=== PATIENT | female | born 1980 | race Caucasian/White ===

== ENCOUNTER 2020-04-04 13:41 | Inpatient (IN) | payer SELFPAY ==
[2020-04-04] VITALS (8 sets, daily range): BP systolic 93–173; BP diastolic 61–117; PULSE 71–96; RESP 16–27; TEMP 36.8–37.1; O2SAT 96–100; BMI 21.9
--- NOTE | 2020-04-04 13:57 | ED_ITS ---
HPI - Psych General: Chief Complaint: Psychiatric Symptoms Stated Complaint: mhe Time Seen by Provider: 04/04/20 13:55 History of Present Illness: HPI Narrative: 39-year-old female mother recently , she had not been managing well. she had been drinking heavily the last 2 wks -she states she has been drinking 4 or more beers per day along with 10 shots. She has not been drinking for the last 12 hr. today in the emergency room she is desponded over the loss of her mother. She is tearful she denies suicidal ideation or homicidal ideation, but she does admit to having previously been hospitalized for mental health issues going back to 2013. Prior to that when she was a 19-year-old she was hospitalized for suicidal attempt where she cut her wrist she still has the scars from this. She denies any other recent illness or problems. She denies any cough cold fever sweats chills shortness of breath abdominal pain UTI GI or symptoms. Review of Systems Const: Denies: fever(s), chills, body aches, change in appetite, fatigue or malaise ENMT: Denies: throat pain, ear or mastoid pain, nasal discharge or nasal congestion Card: Denies: chest pain, edema, dyspnea on exertion or orthopnea Resp: Denies: dyspnea, productive cough or non-productive cough GI: Denies: abdominal pain, nausea, vomiting, hematemesis, coffee ground emesis, diarrhea, constipation, bloating, hematochezia or melena : Denies: flank pain, difficulty voiding, dysuria, urinary frequency or urinary urgency Skin/Breast: Denies: rash or pruritus PFSH ED PFSH: Medical History History of hepatitis A Surgical History H/O section X2 Social History Smoking and tobacco status: current every day smoker Physical Exam Const: COMMON NORMALS: no acute distress GENERAL APPEARANCE: cooperative and comfortable ORIENTATION/CONSCIOUSNESS: Yes awake, Yes oriented to person, Yes oriented to place and Yes oriented to time HENMT: COMMON NORMALS: normocephalic, atraumatic, hearing grossly normal bilaterally, external ears normal, EAC's normal, TM's normal bilaterally, Normal nasal mucous membranes and turbinates present, moist oral mucous membranes and oropharynx normal HEAD & SCALP: normocephalic and atraumatic NOSE: Normal nasal mucous membranes and turbinates present EXTERNAL EAR: Yes external ears normal EXTERNAL AUDITORY CANAL: EAC's normal TYMPANIC MEMBRANE: TM's norm al bilaterally Eye: COMMON NORMALS: Equal, round and reactive pupils present, EOMs intact bilaterally, conjunctivae normal and no scleral icterus CONJUNCTIVA: Yes conjunctivae normal PUPIL: Yes Equal, round and reactive pupils present Neck/C-Spine: COMMON NORMALS: full ROM, no lymphadenopathy, supple and no JVD Lymph: LYMPHATIC: no lymphadenopathy noted and no lymphedema noted Resp: COMMON NORMALS: normal respiratory effort, No retractions, No use of accessory muscles and clear to auscultation bilaterally AUSCULTATION: clear to auscultation bilaterally Cardio: COMMON NORMALS: no JVD, regular rate, regular rhythm and No murmurs present (Cardio) RATE: regular rate RHYTHM: regular rhythm GI: COMMON NORMALS: Soft to palpation and No hepatosplenomegaly present AUSCULTATION: Yes normoactive bowel sounds PALPATION: Yes Soft to palpation, No Tenderness to palpation present (GI), No Guarding due to palpation present (GI) and Yes No hepatosplenomegaly present Extremity: COMMON NORMALS: normal to inspection, capillary refill normal, no clubbing, cyanosis or edema, no calf tenderness and no pedal edema Neuro: SENSORIUM/ORIENTATION: Yes oriented to person, Yes oriented to place and Yes oriented to time Skin: COMMON NORMALS: no rashes or lesions noted GENERAL SKIN EXAM: no rashes or lesions noted MDM - Psych MDM Narrative: Medical decision making narrative: Patient does not already express suicidal ideation but he does state she wishes she was no longer here. She wishes she could just fall asleep and not wake up she has previously att empted suicide and has scars on her left forearm from that attempt. She is extremely despondent I believe she is an imminent danger to herself given her level of despondency. She is already self-medicating with alcohol. In talking to her I do not think her coping mechanisms or judgment skills are adequate to prevent her from making a rash decision in harming herself discussed Dr. Durán and he agrees. He will admit to the psychiatric unit. Lab Data: Labs: Lab Results 04/04/20 04/04/20 04/04/20 Range/Units 14:20 14:20 14:30 WBC 12.6 H (4.0-10.0) 10^3/ uL RBC 5.14 (4.1-5.3) 10^6/u L Hgb 14.2 (11.5-15.3) g/dL Hct 44.5 (37.0-47.0) % MCV 86.6 (81-99) fL MCH 27.6 L (28.0-34.0) pg MCHC 31.9 (30.0-36.0) g/dL RDW 13.9 (12.1-15.1) % Plt Count 398 (130-400) 10^3/c mm MPV 9.5 (7.4-10.4) fL Neut % (Auto) 72.0 % Lymph % (Auto) 18.3 % Seward % (Auto) 7.8 % Eos % (Auto) 1.2 % Baso % (Auto) 0.5 % Neut # (Auto) 9.1 H (1.8-7.7) 10^3/u L Lymph # (Auto) 2.3 (0.8-4.8) 10^3/u L Seward # (Auto) 1.0 H (0.2-0.9) 10^3/u L Eos # (Auto) 0.2 (0.0-0.8) 10^3/u L Baso # (Auto) 0.1 (0.0-0.1) 10^3/u L Nucleated RBC % (a uto) 0 % Nucleated RBCs # 0.0 /100WBC Sodium 137 (136-145) mmol/L Potassium 4.5 (3.5-5.1) mmol/L Chloride 99 (98-107) mmol/L Carbon Dioxide 27 (22-29) mmol/L Anion Gap 15.5 (5-19) BUN 6 (6-20) mg/dL Creatinine 0.5 (0.5-0.9) mg/dL GFR Calculation 138.8 H (90-130) mL/min Glucose 98 (65-115) mg/dL Calculated Osmolal ity 280 L (285-295) mOsm/k g Calcium 9.5 (8.5-10.5) mg/dL Total Bilirubin 0.4 (0.15-1.2) mg/dL AST 20 (0-32) U/L ALT 11 (0-33) U/L Alkaline Phosphata se 80 (35-105) IU/L Total Protein 7.3 (6.6-8.7) g/dL Albumin 4.6 (3.5-5.2) g/dL Globulin 2.7 (1.3-4.6) g/dL TSH 0.31 (0.27-4.20) uIU/ mL HCG, Qual Negative (Negative) Urine Color (Yellow) Urine Appearance (CLEAR) Urine pH (5-7) Ur Specific Gravit y (1.005-1.030) Urine Protein (Negative) Urine Glucose (UA) (Normal) Urine Ketones (Negative) Urine Blood (Negative) Urine Nitrate (Negative) Urine Bilirubin (NEGATIVE) Urine Urobilinogen (Negative) mg/dL Ur Leukocyte Geni ase (Negative) Salicylates < 0.3 L (3-10) mg/dL Urine Opiates Scre en (Negative) ng/mL Acetaminophen < 5.0 L (10-30) ug/mL Ur Barbiturates Sc reen (Negative) ng/mL Ur Phencyclidine S crn (Negative) ng/mL Ur Amphetamines Sc reen (Negative) ng/mL U Benzodiazepines Scrn (Negative) ng/mL Urine Cocaine Scre en (Negative) ng/mL U Marijuana (THC) Screen (Negative) ng/mL Ethyl Alcohol < 10 (0-10) mg/dL 04/04/20 04/04/20 Range/Units 14:30 14:30 WBC (4.0-10.0) 10^3/ uL RBC (4.1-5.3) 10^6/u L Hgb (11.5-15.3) g/dL Hct (37.0-47.0) % MCV (81-99) fL MCH (28.0-34.0) pg MCHC (30.0-36.0) g/dL RDW (12.1-15.1) % Plt Count (130-400) 10^3/c mm MPV (7.4-10.4) fL Neut % (Auto) % Lymph % (Auto) % Seward % (Auto) % Eos % (Auto) % Baso % (Auto) % Neut # (Auto) (1.8-7.7) 10^3/u L Lymph # (Auto) (0.8-4.8) 10^3/u L Seward # (Auto) (0.2-0.9) 10^3/u L Eos # (Auto) (0.0-0.8) 10^3/u L Baso # (Auto) (0.0-0.1) 10^3/u L Nucleated RBC % (a uto) % Nucleated RBCs # /100WBC Sodium (136-145) mmol/L Potassium (3.5-5.1) mmol/L Chloride (98-107) mmol/L Carbon Dioxide (22-29) mmol/L Anion Gap (5-19) BUN (6-20) mg/dL Creatinine (0.5-0.9) mg/dL GFR Calculation (90-130) mL/min Glucose (65-115) mg/dL Calculated Osmolal ity (285-295) mOsm/k g Calcium (8.5-10.5) mg/dL Total Bilirubin (0.15-1.2) mg/dL AST (0-32) U/L ALT (0-33) U/L Alkaline Phosphata se (35-105) IU/L Total Protein (6.6-8.7) g/dL Albumin (3.5-5.2) g/dL Globulin (1.3-4.6) g/dL TSH (0.27-4.20) uIU/ mL HCG, Qual (Negative) Urine Color Yellow (Yellow) Urine Appearance Clear (CLEAR) Urine pH 8 H (5-7) Ur Specific Gravit y 1.010 (1.005-1.030) Urine Protein Neg (Negative) Urine Glucose (UA) Norm (Normal) Urine Ketones Negative (Negative) Urine Blood Neg (Negative) Urine Nitrate Negative (Negative) Urine Bilirubin Neg (NEGATIVE) Urine Urobilinogen Norm (Negative) mg/dL Ur Leukocyte Geni ase Negative (Negative) Salicylates (3-10) mg/dL Urine Opiates Scre en Positive H (Negative) ng/mL Acetaminophen (10-30) ug/mL Ur Barbiturates Sc reen Negative (Negative) ng/mL Ur Phencyclidine S crn Negative (Negative) ng/mL Ur Amphetamines Sc reen Negative (Negative) ng/mL U Benzodiazepines Scrn Positive H (Negative) ng/mL Urine Cocaine Scre en Negative (Negative) ng/mL U Marijuana (THC) Screen Negative (Negative) ng/mL Ethyl Alcohol (0-10) mg/dL Discharge Plan Discharge Patient Disposition: Admitted As Inpatient Admit Provider: Luis Armando Durán Clinical Impression: Suicidal ideation Condition: Stable Discharge Orders: Discharge Order (Routine); Ordered 04/05/20 Ordered By: Luis Armando Durán Referrals: [facility] [place] [facility] Behavioral Health Care [Outside] - 4-7 days (Your intake paperwork will be submitted prior to your hospital discharge. They will contact you by phone for your initial assessment.) [facility] [Outside] (Resource for substance and alcohol abuse. They offer both inpatient and outpatient classes and support.) Discharge Diet: Usual diet Discharge Activity: Resume usual activity Additional Instructions: Alcoholics Anonymous Meeting Schedule Saturday-6:[address] [address] [facility]11[facility] [address] [place] [address] Interventions: ED Discharge Assessment Last Done: 04/04/20 16:14 ED Charges Last Done: 04/04/20 16:14 Discharge Date/Time: 04/04/20 16:17 Coding Level of Care Code ED Full Charge Bookkeeper for Derick Fwd Exam Comprehensive
[2020-04-04 14:32] LABS: Basophils # 0.1 10^3/uL (0.0-0.1); Basophils % 0.5 %; Eosinophils # 0.2 10^3/uL (0.0-0.8); Eosinophils % 1.2 %; Hematocrit 44.5 % (37.0-47.0); Hemoglobin 14.2 g/dL (11.5-15.3); Lymphocytes # 2.3 10^3/uL (0.8-4.8); Lymphocytes % 18.3 %; Mean Corpuscular HGB Conc 31.9 g/dL (30.0-36.0); Mean Corpuscular Hemoglobin 27.6 pg (28.0-34.0); Mean Corpuscular Volume 86.6 fL (81-99); Mean Platelet Volume 9.5 fL (7.4-10.4); Monocytes % 7.8 %; Neutrophils # 9.1 10^3/uL (1.8-7.7); Nucleated Red Blood Cells % 0 %; Platelet Count 398 10^3/cmm (130-400); Red Blood Count 5.14 10^6/uL (4.1-5.3); Red Cell Distribution Width 13.9 % (12.1-15.1); White Blood Count 12.6 10^3/uL (4.0-10.0)
[2020-04-04 15:05] LABS: Add Urine Microscopic? NO
[2020-04-04 15:09] LABS: Alanine Aminotransferase 11 U/L (0-33); Albumin Level 4.6 g/dL (3.5-5.2); Alkaline Phosphatase 80 IU/L (35-105); Anion Gap 15.5 (5-19); Aspartate Amino Transferase 20 U/L (0-32); Blood Urea Nitrogen 6 mg/dL (6-20); Calcium 9.5 mg/dL (8.5-10.5); Carbon Dioxide 27 mmol/L (22-29); Chloride 99 mmol/L (98-107); Globulin 2.7 g/dL (1.3-4.6); Glomerular Filtration Rate 138.8 mL/min (90-130); Glucose 98 mg/dL (65-115); Osmolality Calculated 280 mOsm/kg (285-295); Potassium 4.5 mmol/L (3.5-5.1); Sodium 137 mmol/L (136-145); Thyroid Stimulating Hormone 0.31 uIU/mL (0.27-4.20); Total Bilirubin 0.4 mg/dL (0.15-1.2); Total Protein 7.3 g/dL (6.6-8.7)
[2020-04-04 15:11] LABS: HCG Qualitative Urine. Negative (Negative)
[2020-04-04 15:13] LABS: Bilirubin Urine Neg (NEGATIVE); Blood Urine Neg (Negative); Glucose Urine UA Norm (Normal); Ketones Urine Negative (Negative); Leukocyte Esterase Urine Negative (Negative); Nitrate Urine Negative (Negative); Protein Urine Neg (Negative); Urine Appearance Clear (CLEAR); Urine Color Yellow (Yellow); Urobilinogen Urine Norm (Negative); pH Urine 8 (5-7)
[2020-04-04 15:16] LABS: Acetaminophen < 5.0 ug/mL (10-30); Alcohol Level < 10 mg/dL (0-10); Salicylate < 0.3 mg/dL (3-10)
[2020-04-04 15:18] LABS: Amphetamines Screen Urine Negative (Negative); Barbiturates Screen Urine Negative (Negative); Benzodiazepines Screen Urine Positive (Negative); Cocaine Screen Urine Negative (Negative); Opiate Screen Urine Positive (Negative); PCP Screen Urine Negative (Negative); THC Screen Urine Negative (Negative)
[2020-04-04] MEDS: nicotine 21 mg Patch 1 PATCH TRANSDERMA (17:13)
[2020-04-04] MEDS: trazodone 50 mg Tablet PO (20:34)
[2020-04-04] MEDS: acetaminophen 325 mg Tablet 650 MG PO (23:06)
--- NOTE | 2020-04-04 23:23 | PC.NURSE ---
Pt given Tylenol for body aches and Trazodone for sleep per request.
[2020-04-05 06:00] VITALS: BP 127/66; PULSE 81; RESP 17; TEMP 36.7; O2SAT 99
[2020-04-05 12:32] VITALS: BP 112/66; PULSE 91; RESP 18; TEMP 37.1; O2SAT 99
--- NOTE | 2020-04-05 13:51 | PM.NHP ---
Providers/Chief Complaint Admitting Physician: Luis Armando Durán [place] Source[place] [facility] Chief Complaint: mhe HPI NPU History of Present Illness Patricia Londono is a 39 year old female mixed ethnicity female whose mother recently and she is grief-stricken. She had been treated here for depression some 10 years ago and has been fairly stable since then until her mom . She has recently been so sad she can hardly function. She had not been managing well, drinking heavily the last 2 wks . . . 4 or more beers per day along with 10 shots. She has not been drinking for the last 12 hr. Today in the emergency room she is despondent over the loss of her mother. She is tearful she denies suicidal ideation or homicidal ideation, but she does admit to having previously been hospitalized for mental health issues going back to 2012. Prior to that when she was a 19-year-old she was hospitalized for suicidal attempt where she cut her wrist she still has the scars from this. She denies any other recent illness or problems. She denies any cough cold fever sweats chills shortness of breath abdominal pain UTI GI or symptoms. Review of Systems Narrative: No positive in any system. Patient is grieving. Meds NPU Home Medications Medication Instructions Recorded Confirmed Last Taken Type No Known Home Medications 04/04/20 04/04/20 Unknown History Allergies Allergy/AdvReac Type Severity Reaction Status Date / Time bupropion [From Wellbutrin] Allergy ALGY-Hives Verified 04/04/20 13:53 PFSH NPU PFSH: Medical History (Updated 04/05/20 @ 14:21 by Luis Armando Durán) History of hepatitis A Surgical History (Updated 04/04/20 @ 16:10 by Casey Maddox DO) H/O section X2 Social History Smoking and tobacco status: current every day smoker Mental Status Exam MSE Comments: This is a 39-year-old female who appears her stated age. She is clean and neat and good body habitus. Mood is sad and affect is flat. Thought processes are integrated and free of any racing, blocking or looseness of association. Speech is of normal rate and volume, without dysarthria, aprosody or pressure. The patient is conduct is appropriate and there is no evidence of psychosis, such as but not limited to hallucinations, delusions, ideas of reference, etc. cognitive functions are adequate. The patient is oriented to time, place and person. Insight and judgment are intact. She denies suicidal or homicidal ideation, plan or intent. Vitals/I&O/Wt Last Vital Signs Temp 98.7 F 04/05/20 12:32 Pulse 91 04/05/20 12:32 Resp 18 04/05/20 12:32 BP 112/66 04/05/20 12:32 Pulse Ox 99 04/05/20 12:32 Weight last 48 hrs Weight 120 lb Data NPU : 04/04/20 14:20 04/04/20 14:20 A&P Assessment and plan (1) Complicated grief: Refer patient to outpatient therapy. Initiate S-Citalopram to assist with depression. Status: Acute (2) Alcohol abuse: Refer patient for outpatient rehab. Status: Acute Involuntary Hold Information 96 Hour Hold: 96 Hour Involuntary Admission: No Attestations NPU Medical Necessity Statement*: I think we can get this patient stabilized relatively soon and continue her care on an outpatient basis. I anticipate 2 to 3 days additional stay is indicated. Time Spent in Patient Care: Greater than 35 minutes (>than 50% of time spent in counselling and/or direct pt care on unit). Coding Level of Care Code Acute Securities Consultant for Derick Cortez Diagnoses Complicated grief F43.29 Alcohol abuse F10.10
[2020-04-05] MEDS: citalopram 20 mg Tablet 10 MG PO (14:43)
[2020-04-05 19:52] VITALS: BP 126/76; PULSE 82; RESP 17; TEMP 36.9; O2SAT 99
--- NOTE | 2020-04-05 19:54 | P.DS_ITS ---
Diagnoses at Discharge Discharge Diagnosis (1) Complicated grief: Status: Acute Problem details: Patient will follow-up at behavioral health care. (2) Alcohol abuse: Status: Acute Problem details: The patient has been given referral to AA meeting schedule and to [facility] inpatient [facility] outpatient recovery program Reason for Visit Reason for Visit: Reason For Visit: mhe Brief History: The patient's mother recently and she is grief-stricken. She had been treated here for depression some 10 years ago and has been fairly stable since then until her mom . She has recently been so sad she can hardly function. She had not been managing well, drinking heavily the last 2 wks . . . 4 or more beers per day, along with 10 shots. Hospital Course Hospital Course The patient quickly noticed that her friends, when she was talking to them on the phone, kept remarking that she sounded better. She soon concluded that it was the absence of alcohol in her neurologic system that improved her speech and she determined that she needed to sober up. Discharge Summary Without alcohol she began to recover from the shock, but not from the sorrow, of her mother's loss. That will take some time and we have made referral for that as well as for alcohol recovery. A discharge packet has been provided to her with information on behavioral health care and [facility] and for follow-up on her respective issues. We also sent a prescription over to [facility] pharmacy at [facility] for citalopram 20 mg p.o. daily, #30, 2 refills. Her will pick her up tonight. Extensive counseling on education relating to cigarette smoking and alcohol was undertaken. Involuntary Hold Information 96 Hour Hold: 96 Hour Involuntary Admission: No Mental Status Exam MSE Comments: This is a 39-year-old female who appears her stated age. She is clean and neat and good body habitus. Mood is less sad sad and affect is more variegated. Thought processes remain integrated and free of any racing, blocking or looseness of association. Speech is of normal rate and volume, without dysarthria, aprosody or pressure. The patient is conduct is appropriate and there is no evidence of psychosis, such as but not limited to hallucinations, delusions, ideas of reference, etc. Cognitive functions are adequate. The patient is oriented to time, place and person. Insight and judgment are intact. She denies suicidal or homicidal ideation, plan or intent. Discharge Data Vitals: Last Vital Signs Temp 98.4 F 04/05/20 19:52 Pulse 82 04/05/20 19:52 Resp 17 04/05/20 19:52 BP 126/76 04/05/20 19:52 Pulse Ox 99 04/05/20 19:52 Discharge Plan Discharge Patient Disposition: Home, Self-Care Condition: Stable Prescriptions: New citalopram 20 mg Tablet 20 mg PO DAILY Qty: 0 RF: 0 No Action No Known Home Medications RF: 0 Discharge Orders: Discharge Order (Routine); Ordered 04/05/20 Ordered By: Luis Armando Durán Referrals: [facility] [place] Behavioral Health Care [Outside] - 4-7 days (Your intake paperwork will be submitted prior to your hospital discharge. They will contact you by phone for your initial assessment.) [facility] [Outside] (Resource for substance and alcohol abuse. They offer both inpatient and outpatient classes and support.) Discharge Diet: Usual diet Discharge Activity: Resume usual activity Activity Restrictions/Additional Instructions: Alcoholics Anonymous Meeting Schedule Saturday-6:00 p.m. [facility] [address] [place] [address] [facility]11[facility] [address] [place] [address] Discharge Attestations NPU Time Spent in Discharge Care*: critical care time (min): 20 Specific Discharge Activities: Specific discharge activities: educating patient, discussing with case monitor/social workers/dc planners, documenting/other paperwork and evaluating patient/reviewing data Other discharge activites (optional): Getting prescription information over to [facility]. Time Spent in Smoking Cessation: Time spent discussing smoking cessation with patient: 3 to 10 minutes Status at Discharge: Cognitive status at discharge: cognitively intact , Behavioral status at discharge: cooperative , Functional status at discharge: independent ambulation Overall status at discharge: other (The patient is grieving on this will take a while.) Coding Level of Care Code Acute Line Out Man for Shoaibg Fwd Diagnoses Complicated grief F43.29 Alcohol abuse F10.10
[2020-04-05 20:14] VITALS: BP 126/76; PULSE 82; RESP 17; TEMP 36.9; O2SAT 99
--- NOTE | 2020-04-05 20:27 | PC.NURSE ---
pt given discharge information packet, escorted to waiting private vehicle.
== END 2020-04-05 20:31 | disposition home or self-care (01) | DRG 882 ==
LOC: ER 14:27 → NP 15:58
PROVIDERS: Family Medicine
DX: F43.29 Adjustment disorder with other symptoms (principal); F17.210 Nicotine dependence, cigarettes, uncomplicated; F10.10 Alcohol abuse, uncomplicated; F32.9 Major depressive disorder, single episode, unspecified
CPT/HCPCS: 12345; 36415; 80053; 80306; 80307; 81003; 81025; 84443; 85025; 99284

== ENCOUNTER 2020-08-29 13:00 | Emergency (ER) | payer SELFPAY ==
[2020-08-29 13:45] VITALS: BP 122/78; PULSE 63; RESP 16; TEMP 37.1; O2SAT 98; BMI 25.0
[2020-08-29 13:49] VITALS: BP 122/78; O2SAT 99
[2020-08-29 13:50] VITALS: BP 122/78; O2SAT 99
[2020-08-29 14:00] VITALS: BP 111/77; O2SAT 99
--- NOTE | 2020-08-29 14:06 | W.ED.ABDPA2 ---
HPI - Abdominal Pain General: Chief Complaint: Abdominal Pain Stated Complaint: ct scan, walk in clinic told her to come here Time Seen by Provider: 08/29/20 13:25 History of Present Illness: HPI narrative: 40-year-old female patient presents to the emergency department with 8-day onset of right lower quadrant pain. She reports past 24 hours, experienced diarrhea, worsening right lower quadrant pain, nausea vomiting. She last ate yesterday, pizza, states did not get sick; this morning, drink coffee with nausea vomiting. She went to urgent care, was told to come to the ER for further evaluation of right lower quadrant pain. Denies hematochezia, hematemesis MD elicited complaint: abdominal pain Onset (ago): day(s) (8) Pain Consistency: intermittent and other (worsening) Location: RLQ and Suprapubic Severity: moderate Quality: aching and dull Migration to: no migration Exacerbating factors: movement Relieving factors: rest Associated Symptoms: Reports change in stool character, GI cramping, diarrhea, loose stools, nausea and vomiting; Denies chills, dysuria, fever(s) and hematemesis Related Data: Date of Last Menstrual Period: 08/08/20 Review of Systems General: Reports: 10 or more systems reviewed and unremarkable except in HPI and below Const: Denies: fever(s), chills or diaphoresis Eyes: Denies: blurry vision or eye redness ENMT: Denies: throat pain, dental pain or disequilibrium Card: Denies: chest pain, palpitations or irregular heart rhythm Resp: Denies: dyspnea, productive cough, non-productive cough or wheezing GI: Reports: abdominal pain, nausea, vomiting, early satiety, diarrhea, GI cramping and change in stool character; Denies: hematemesis or mucus in stool : Denies: difficulty voiding or dysuria Musc: Denies: back pain Skin/Breast: Denies: rash or pruritus Neuro: Denies: headache(s), weakness in extremities or behavioral changes Matthew/Lymph: Denies: easy bruising PFSH ED PFSH: Medical History (Updated 08/29/20 @ 16:58 by GENIE White) History of hepatitis A Surgical History H/O section X2 Social History Smoking and tobacco status: current every day smoker cigarettes Packs smoked per day: 1.5 Years cigarettes smoked: 25 Quit status (tobacco): considering quitting Second hand smoke exposure: Yes Current gender identity: Female Female Reproductive History: Date of last menstrual period: 08/08/20 Physical Exam Const: COMMON NORMALS: no acute distress, patient oriented x3, healthy appearing and alert GENERAL APPEARANCE: cooperative, comfortable and well hydrated HENMT: COMMON NORMALS: normocephalic, Normal external nose present and moist oral mucous membranes HEAD & SCALP: normocephalic NOSE: Normal external nose present Eye: COMMON NORMALS: Equal, round and reactive pupils present and EOMs intact bilaterally GENERAL EYE: appearance normal, both eyes and all related structures PUPIL: Yes Equal, round and reactive pupils present Neck/C-Spine: COMMON NORMALS: full ROM and no lymphadenopathy GENERAL: Yes normal visual inspection and Yes trachea midline CERVICAL SPINE: Yes cervical ROM normal Lymph: LYMPHATIC: no lymphadenopathy noted Chest: COMMONS NORMALS: normal inspection of the chest Resp: COMMON NORMALS: normal respiratory effort and clear to auscultation bilaterally AUSCULTATION: clear to auscultation bilaterally Cardio: COMMON NORMALS: regular rhythm, S1 normal heart sound present and S2 normal heart sound present RHYTHM: regular rhythm HEART SOUNDS: S1 normal heart sound present and S2 normal heart sound present GI: COMMON NORMALS: Normal to inspection, nondistended, normoactive bowel sounds present and Soft to palpation INSPECTION: Yes normal to inspection, No abdominal wall ecchymosis, No abdominal distension, No incision, Yes scar (RLQ - w/o erythema), No visible pulsation, No Localized GI swelling present and No GI erythema present AUSCULTATION: Yes normoactive bowel sounds PALPATION: Yes Soft to palpation, Yes Tenderness to palpation present (GI) Details: RLQ and other (suprapubic) and Yes Other GI palpation findings present (distention noted) : COMMON NORMALS: Yes no CVA tenderness BLADDER/KIDNEY EXAM: Yes no CVA tenderness Back/Pelvis: COMMON NORMALS: no CVA tenderness and thoracic and lumbar spine normal to inspection Extremity: COMMON NORMALS: normal to inspection and capillary refill normal Neuro: COMMON NORMALS: patient oriented x3 and no focal motor deficits SENSORIUM/ORIENTATION: Yes alert Psych: COMMON NORMALS: mental status grossly normal, Normal thought process present and cooperative ACTIVITY/MOTOR BEHAVIOR: Yes appropriate eye contact THOUGHT PROCESS: Normal thought process present Skin: COMMON NORMALS: no rashes or lesions noted and turgor normal GENERAL SKIN EXAM: no rashes or lesions noted and turgor normal Course ED course: 40-year-old female patient presents to the emergency department with complaints of abdominal pain, right lower quadrant, 8-day onset of diarrhea with worsening symptoms of nausea vomiting yesterday and today. CT scan of the abdomen pelvis with IV contrast revealed pancolitis. She is requesting to go home. She does not wish to stay in the hospital. She agrees that follow-up with a primary care provider will be needed and she agrees with follow-up. She will be discharged on antibiotics and antinausea medication. She agrees to follow-up with her primary care provider in 2 to 3 days, social service referral placed for assistance with referral. She was able to tolerate p.o. fluids here in the ED, she reports was hungry. Discussed with patient need for clear liquid diet and can advance as tolerated. Agrees to return to the emergency department if she develops worsening abdominal pain, hematochezia, hematemesis, she is willing to provide stool sample for stool studies have been ordered as an outpatient. Reevaluation of her belly was soft, not able to reproduce tenderness. Vital Signs: Vital signs: Vital Signs Temperature 98.8 F 08/29/20 13:45 Pulse Rate 63 08/29/20 13:45 Respiratory Rate 16 08/29/20 13:45 Blood Pressure 111/77 08/29/20 14:30 Pulse Oximetry 99 08/29/20 14:00 MDM - Abdominal Pain Lab Data: Labs: Lab Results 08/29/20 08/29/20 08/29/20 Range/Units 14:30 14:50 14:50 WBC 12.4 H (4.0-10.0) 10^3/ uL RBC 5.35 H (4.1-5.3) 10^6/u L Hgb 14.5 (11.5-15.3) g/dL Hct 46.5 (37.0-47.0) % MCV 86.9 (81-99) fL MCH 27.1 L (28.0-34.0) pg MCHC 31.2 (30.0-36.0) g/dL RDW 13.7 (12.1-15.1) % Plt Count 463 H (130-400) 10^3/c mm MPV 9.5 (7.4-10.4) fL Neut % (Auto) 65.4 % Lymph % (Auto) 22.9 % Bartholomew % (Auto) 8.1 % Eos % (Auto) 2.8 % Baso % (Auto) 0.6 % Neut # (Auto) 8.13 H (1.8-7.7) 10^3/u L Lymph # (Auto) 2.8 (0.8-4.8) 10^3/u L Bartholomew # (Auto) 1.0 H (0.2-0.9) 10^3/u L Eos # (Auto) 0.4 (0.0-0.8) 10^3/u L Baso # (Auto) 0.1 (0.0-0.1) 10^3/u L Nucleated RBC % (a uto) 0 % Nucleated RBCs # 0.0 /100WBC Sodium 138 (136-145) mmol/L Potassium 3.6 (3.5-5.1) mmol/L Chloride 100 (98-107) mmol/L Carbon Dioxide 27 (22-29) mmol/L Anion Gap 14.6 (5-19) BUN 5 L (6-20) mg/dL Creatinine 0.6 (0.5-0.9) mg/dL GFR Calculation 111.9 (90-130) mL/min Glucose 94 (65-115) mg/dL Calculated Osmolal ity 283 L (285-295) mOsm/k g Calcium 9.8 (8.5-10.5) mg/dL Total Bilirubin 0.4 (0.15-1.2) mg/dL AST 22 (0-32) U/L ALT 19 (0-33) U/L Alkaline Phosphata se 87 (35-105) IU/L Total Protein 7.7 (6.6-8.7) g/dL Albumin 4.6 (3.5-5.2) g/dL Globulin 3.1 (1.3-4.6) g/dL Lipase 32 (13-60) U/L HCG, Qual (Negative) Urine Color Yellow (Yellow) Urine Appearance Clear (CLEAR) Urine pH 6 (5-7) Ur Specific Gravit y 1.005 (1.005-1.030) Urine Protein Neg (Negative) Urine Glucose (UA) Norm (Normal) Urine Ketones Negative (Negative) Urine Blood Neg (Negative) Urine Nitrate Negative (Negative) Urine Bilirubin Neg (Negative) Urine Urobilinogen Norm (Negative) mg/dL Ur Leukocyte Geni ase Negative (Negative) 08/29/20 Range/Units 14:50 WBC (4.0-10.0) 10^3/ uL RBC (4.1-5.3) 10^6/u L Hgb (11.5-15.3) g/dL Hct (37.0-47.0) % MCV (81-99) fL MCH (28.0-34.0) pg MCHC (30.0-36.0) g/dL RDW (12.1-15.1) % Plt Count (130-400) 10^3/c mm MPV (7.4-10.4) fL Neut % (Auto) % Lymph % (Auto) % Bartholomew % (Auto) % Eos % (Auto) % Baso % (Auto) % Neut # (Auto) (1.8-7.7) 10^3/u L Lymph # (Auto) (0.8-4.8) 10^3/u L Bartholomew # (Auto) (0.2-0.9) 10^3/u L Eos # (Auto) (0.0-0.8) 10^3/u L Baso # (Auto) (0.0-0.1) 10^3/u L Nucleated RBC % (a uto) % Nucleated RBCs # /100WBC Sodium (136-145) mmol/L Potassium (3.5-5.1) mmol/L Chloride (98-107) mmol/L Carbon Dioxide (22-29) mmol/L Anion Gap (5-19) BUN (6-20) mg/dL Creatinine (0.5-0.9) mg/dL GFR Calculation (90-130) mL/min Glucose (65-115) mg/dL Calculated Osmolal ity (285-295) mOsm/k g Calcium (8.5-10.5) mg/dL Total Bilirubin (0.15-1.2) mg/dL AST (0-32) U/L ALT (0-33) U/L Alkaline Phosphata se (35-105) IU/L Total Protein (6.6-8.7) g/dL Albumin (3.5-5.2) g/dL Globulin (1.3-4.6) g/dL Lipase (13-60) U/L HCG, Qual Negative (Negative) Urine Color (Yellow) Urine Appearance (CLEAR) Urine pH (5-7) Ur Specific Gravit y (1.005-1.030) Urine Protein (Negative) Urine Glucose (UA) (Normal) Urine Ketones (Negative) Urine Blood (Negative) Urine Nitrate (Negative) Urine Bilirubin (Negative) Urine Urobilinogen (Negative) mg/dL Ur Leukocyte Geni ase (Negative) Imaging Data ^: CT Abd/Pel: Radiologist's impression: [place] [address] CT Scan Report Signed Patient: Patricia Londono #: [id number] : 1980Acct#:[id number] Age/Sex: 40 / FADM Date: 08/29/20 Loc: ERRoom/Bed: Attending Dr: Ordering Provider/Ordering MD: Yu Carr Date of Service: 08/29/20 Procedure(s): CT abdomen pelvis w con* [id number] Accession Number(s): [id number] Report Number: [id number] WS: [id number] CT ABDOMEN AND PELVIS WITH CONTRAST HISTORY: RLQ abd pain with n/v/d TECHNIQUE: Imaging performed of the abdomen and pelvis with IV contrast. Single phase imaging of the abdomen. Coronal and sagittal reformats are submitted. All CT scans at [facility] use at least one of these dose optimization techniques: automated exposure control; mA and/or kV adjustment per patient size (includes targeted exams where dose is matched to clinical indication); or iterative reconstruction. IV CONTRAST: Omnipaque 300; 95 mL IV. Oral contrast: No DLP: 374.86 mGy.cm COMPARISON: None available. Lower thorax: Lung bases are clear. Heart is normal size. No hiatal hernia. Liver/biliary system: Normal size with no intrahepatic dilatation. Gallbladder: Normal. No gallstones or wall thickening. No pericholecystic fluid. Pancreas: Normal. Spleen: Normal. Adrenal glands: Normal. Right kidney: Normal. Left kidney: Normal. Aorta: Mild atherosclerosis with no aneurysm. Lymphadenopathy: None. Free fluid: A moderate free fluid in the cul-de-sac. GI tract: Diffusely abnormal colon. There is also edema and thickening and pericolonic stranding. There is additional cyst mild stranding and haziness within the mesentery. The appendix is normal. There is no GI tract obstruction no free air is identified. Abdominal wall: Fat-containing umbilical hernia. Pelvis: Small amount of free fluid in the pelvis. Uterus is normal size and midline. Both ovaries are normal size and contains some all follicles. Bones: Unremarkable. CT/CT abdomen pelvis w con* [id number] IMPRESSION: 1. Diffuse moderate pancolitis. 2. Small amount of free fluid. 3. Normal appendix. Dictated By:Genny Schulte DO Signed By:Genny Schulte DOSigned Date/Time:08/29/201615 DD/ 10 Discharge Plan Discharge Patient Disposition: Home Clinical Impression: Pancolitis Abdominal pain Qualifiers: Abdominal location: right lower quadrant Qualified Code(s): R10.31 - Right lower quadrant pain Nausea & vomiting Qualifiers: Vomiting type: unspecified Vomiting Intractability: non-intractable Qualified Code(s): R11.2 - Nausea with vomiting, unspecified Condition: Stable Prescriptions: New Zofran 4 mg tablet 4 mg PO TID PRN (Reason: nausea and vomiting) 5 Days Qty: 10 RF: 0 Cipro 500 mg tablet 500 mg PO BID Qty: 14 RF: 0 Flagyl 500 mg tablet 500 mg PO TID Qty: 21 RF: 0 No Action multivitamin Tablet 1 tab PO DAILY RF: 0 citalopram 40 mg tablet 40 mg PO DAILY RF: 0 trazodone 50 mg tablet 50 mg PO BEDTIME PRN (Reason: insomnia) RF: 0 Discharge Orders: Discharge Order (Routine); Ordered 08/29/20 Ordered By: Yu Carr Discharge Diet: Advance as tolerated and Clear Liquid Discharge Activity: Limit activity as instructed Patient Instructions: Clear Liquid Diet (ED), Acute Nausea and Vomiting (ED), Abdominal Pain (ED), Infectious Colitis (ED) Activity Restrictions/Additional Instructions: Follow-up with your primary care provider in 2 to 3 days, follow-up without fail, Outpatient order for stool studies have been provided, collect and bring back to the hospital environmental services associate will be contacting you with follow-up time and date with a primary care provider, please ensure that your follow-up is completed as it may be a possibility you may need further referrals if not better Clear liquid diet, advance as tolerated Use Zofran as needed for nausea vomiting Return to the emergency department if you develop nausea vomiting that is resistant to the use of Zofran, worsening abdominal pain, fever chills or vomiting blood or blood in stool. Take it easy over the next couple of days, no work today or tomorrow, follow-up with your primary care provider accordingly. Coding Level of Care Code ED Retail Warehouse Supervisor for Chg Fwd Exam Comprehensive
[2020-08-29 14:30] VITALS: BP 111/77
[2020-08-29] MEDS: ondansetron 2 mg/ML SDV 2 mL 4 MG IVP (14:37)
[2020-08-29] MEDS: sodium chloride 0.9% 500 ML 999 ML IV (14:37)
[2020-08-29 15:07] LABS: Basophils # 0.1 10^3/uL (0.0-0.1); Basophils % 0.6 %; Eosinophils # 0.4 10^3/uL (0.0-0.8); Eosinophils % 2.8 %; Hematocrit 46.5 % (37.0-47.0); Hemoglobin 14.5 g/dL (11.5-15.3); Lymphocytes # 2.8 10^3/uL (0.8-4.8); Lymphocytes % 22.9 %; Mean Corpuscular HGB Conc 31.2 g/dL (30.0-36.0); Mean Corpuscular Hemoglobin 27.1 pg (28.0-34.0); Mean Corpuscular Volume 86.9 fL (81-99); Mean Platelet Volume 9.5 fL (7.4-10.4); Monocytes % 8.1 %; Neutrophils # 8.13 10^3/uL (1.8-7.7); Neutrophils % 65.4 %; Nucleated Red Blood Cells % 0 %; Platelet Count 463 10^3/cmm (130-400); Red Blood Count 5.35 10^6/uL (4.1-5.3); Red Cell Distribution Width 13.7 % (12.1-15.1); White Blood Count 12.4 10^3/uL (4.0-10.0)
[2020-08-29 15:27] LABS: Add Urine Microscopic? NO
[2020-08-29 15:39] LABS: HCG, Serum Qual Negative (Negative)
[2020-08-29 15:40] LABS: Blood Urine Neg (Negative); Glucose Urine UA Norm (Normal); Ketones Urine Negative (Negative); Nitrate Urine Negative (Negative); Protein Urine Neg (Negative); Specific Gravity, Urine 1.005 (1.005-1.030); Urine Appearance Clear (CLEAR); Urine Color Yellow (Yellow); pH Urine 6 (5-7)
[2020-08-29 15:41] LABS: Bilirubin Urine Neg (Negative); Leukocyte Esterase Urine Negative (Negative); Urobilinogen Urine Norm (Negative)
[2020-08-29 15:45] LABS: Alanine Aminotransferase 19 U/L (0-33); Albumin Level 4.6 g/dL (3.5-5.2); Alkaline Phosphatase 87 IU/L (35-105); Anion Gap 14.6 (5-19); Aspartate Amino Transferase 22 U/L (0-32); Blood Urea Nitrogen 5 mg/dL (6-20); Calcium 9.8 mg/dL (8.5-10.5); Carbon Dioxide 27 mmol/L (22-29); Chloride 100 mmol/L (98-107); Globulin 3.1 g/dL (1.3-4.6); Glomerular Filtration Rate 111.9 mL/min (90-130); Glucose 94 mg/dL (65-115); Lipase 32 U/L (13-60); Osmolality Calculated 283 mOsm/kg (285-295); Potassium 3.6 mmol/L (3.5-5.1); Sodium 138 mmol/L (136-145); Total Bilirubin 0.4 mg/dL (0.15-1.2); Total Protein 7.7 g/dL (6.6-8.7)
[2020-08-29] MEDS: iohexol 300 mg/mL 100 mL Btl IV (16:00)
[2020-08-29] MEDS: ketorolac 30 mg/mL INJ IVP (17:22)
[2020-08-29 17:28] VITALS: BP 111/77; PULSE 63; RESP 18; TEMP 36.9; O2SAT 99
[2020-08-29 18:21] LABS: Erythrocyte Sedimentation Rate 11 mm/hr (0-15)
[2020-08-29 19:12] LABS: C Reactive Protein 1.2 mg/L (0.0-4.9)
--- NOTE | 2020-08-30 09:35 | DCPLANNER ---
account manager b2b had message to speak with patient about getting established with a primary care physician. account manager b2b called phone number [phone], patient does not have a voicemail box set up at this time. account manager b2b was unable to speak with patient or leave a voicemail for patient.
--- NOTE | 2020-09-02 10:29 | DCPLANNER ---
inventory specialist manager had message to speak with patient about getting established with a primary care physician. inventory specialist manager spoke with patient, would like to get established with a primary care physician. inventory specialist manager called [facility], spoke with Lupis, a follow up appointment was scheduled for September 052019 at 1:[address] Reynolds. inventory specialist manager called patient and gave patient the appointment information. Patient asked about patient financial rep, hospice case manager explained that the hospital had patient financial rep applications that patient could fill out and turn in. inventory specialist manager is mailing patient both of the patient financial rep applications to the patient to fill out and turn in.
--- NOTE | 2020-09-09 16:39 | DCPLANNER ---
Patient had a follow up appointment for patient with [facility] on 20 - patient did attend appointment.
== END 2020-08-29 17:33 | disposition home or self-care (01) ==
PROVIDERS: Emergency Provider Nurse Practitioner Family
DX: K51.00 Ulcerative (chronic) pancolitis without complications (principal); F17.210 Nicotine dependence, cigarettes, uncomplicated
CPT/HCPCS: 12345; 74177; 80053; 81000; 81003; 83690; 84703; 85025; 85651; 86140; 96374; 96375; 99283; 99284; J1885; J2405; J7040; Q9967

== ENCOUNTER → 2021-09-27 13:54 | Outpatient (BNVA) | payer SELFPAY | PROVIDERS: PCP Family Medicine Adult Medicine; Visit Provider Family Medicine Adult Medicine | DX: R10.11 Right upper quadrant pain (principal); G89.29 Other chronic pain; F10.10 Alcohol abuse, uncomplicated | CPT/HCPCS: 80053; 82150; 83690; 85025 ==

== ENCOUNTER → 2021-12-06 15:20 | Outpatient (BNVA) | payer MEDICAID, SELFPAY | PROVIDERS: PCP Family Medicine Adult Medicine; Visit Provider Surgery | DX: Z20.822 Contact with and (suspected) exposure to COVID-19 (principal); K92.1 Melena; R10.11 Right upper quadrant pain; Z87.19 Personal history of other diseases of the digestive system | CPT/HCPCS: 87635 ==

== ENCOUNTER 2021-12-08 07:25 | Day surgery (SDC) | payer MEDICAID, SELFPAY ==
[2021-12-06 11:49] VITALS: BMI 27.4
[2021-12-08] MEDS: sodium chloride 0.9% 1,000 ML 30 ML IV (08:01)
[2021-12-08 08:02] VITALS: BP 121/85; PULSE 99; RESP 16; TEMP 36.9; O2SAT 100
--- NOTE | 2021-12-08 08:04 | ANES.PREANE2 ---
Pre-Anesthetic Assessment Pre-Anesthetic Assessment: Height/Weight: Height 1.57 m Weight 68.039 kg Preop Diagnosis: Abdominal pain/black stool Proposed Procedure: Operation Date: 12/08/21 08:30 Proposed Procedures p EGD/Colon 26496 K92.1(Not Applicable) - Hunter Blank MD s Colonoscopy 68784 R10.22 Z87.19(Not Applicable) - Hunter Blank MD Was Beta Kenyon taken within 24 hours: N/A Was Clonidine taken within 24 hours: N/A Social: Social History: Alcohol and Tobacco Exam: Pre-Anes Outpt Exam: alert, oriented x 3 and regular rate & rhythm Airway: Submandibular: WNL Cervical ROM: WNL MP: 2 Dentition: Chipped Additional comments: Poor dentition Pulmonary: Pulmonary: COPD GI: GI: GERD Neuropsych: Neuropsych: Anxiety and Depression Anesthetic Plan: ASA status: 3 Anesthesia: MAC Risk of > 500 ml blood loss (7ml/kg in children): No Medications/Allergies Current Medications: Current Medications Generic Name Dose Route Start Last Admin Trade Name Freq PRN Reason Stop Dose Admin Sodium Chloride 1,000 mls @ 30 ml s/hr 12/08/21 08:00 12/08/21 08:01 Sodium Chloride 0.9% IV 12/09/21 07:59 30 mls/hr .Q24H AFIA Administration PFSH Anesthesia PFSH: Medical History (Updated 11/27/21 @ 11:25 by Norma Thornton PMHNP) Alcohol dependence, in remission Chronic RUQ pain Complaint of melena Generalized anxiety disorder History of colitis History of hepatitis A Major depressive disorder, recurrent episode Psychiatric care Surgical History (Updated 11/22/21 @ 11:29 by Barrera Reynolds MD) H/O section X2 History of dental surgery Family History Other CAD (coronary artery disease) COPD (chronic obstructive pulmonary disease) Depression Diabetes Psychiatric illness Social History Quit status (tobacco): considering quitting Second hand smoke exposure: Yes Alcohol intake: current Alcohol intake frequency: few times a week Marital status: Single Number of children: 2 Current occupational status: unemployed Current gender identity: Female Female Reproductive History: Date of last menstrual period: 08/08/20 Data Anesthesia Cardiac Studies: No Data to Display
[2021-12-08 08:07] LABS: OR HCG Qualitative Urine Negative (Negative)
--- NOTE | 2021-12-08 08:58 | P.HP_ITS ---
Same Day Surgery H&P Indication for Procedure/HPI DATE OF PROCEDURE: December 08, 2021 CHIEF COMPLAINT/INDICATIONFOR SURGICAL PROCEDURE: Abdominal pain PREOP DIAGNOSIS: Abdominal pain/black stool PLANNED PROCEDURE: Operation Date: 12/08/21 08:30 Proposed Procedures p EGD/Colon 18673 K92.1(Not Applicable) - Hunter Blank MD s Colonoscopy 68614 R10.22 Z87.19(Not Applicable) - Hunter Blank MD 10/19/2021 This is a pleasant 41 years old female patient with a current weight of 142 pounds and a BMI of 26. Reports crampy abdominal pain and sometimes stabbing all over her abdomen. Nothing seems to make it better or worse. Pain is not being referred. She has been having this abdominal pain for the past 2 years or so, reports history of colon cancer of great grandma and she had a cousin with Crohn's disease. Patient reports black tarry stools, per Dr. Reynolds evaluation patient had longstanding history of alcohol ingestion.Patient has been reporting chronic right upper quadrant abdominal pain. Patient undergone a CT scan of the abdomen pelvis back in August 2020 did did show 1. Diffuse moderate pancolitis. 2. Small amount of free fluid. 3. Normal appendix. Interim history 12/08/2021 Patient comes today for EGD and colonoscopy ROS All systems have been reviewed negative except as per the above or per problem list Medications/Allergies* Home Medications Medication Instructions Recorded Confirmed Type acetaminophen 325 mg tablet 325 mg PO QID PRN 09/27/21 12/06/21 History Allergies/Adverse Reactions Allergy/AdvReac Type Severity Reaction Status Date / Time bupropion [From Wellbutrin] Allergy ALGY-Hives Verified 12/08/21 08:59 Current Medications: Generic Name Dose Route Start Last Admin Trade Name Freq PRN Reason Stop Dose Admin Sodium Chloride 1,000 mls @ 30 mls/hr 12/08/21 08:00 12/08/21 08:01 Sodium Chloride 0.9% IV 12/09/21 07:59 30 mls/hr .Q24H AFIA Administration Pertinent History/Comorbid Conditions* Medical History (Updated 11/27/21 @ 11:25 by Norma Thornton, [facility]) Alcohol dependence, in remission Chronic RUQ pain Complaint of melena Generalized anxiety disorder History of colitis History of hepatitis A Major depressive disorder, recurrent episode Psychiatric care Surgical History (Updated 11/22/21 @ 11:29 by Barrera Reynolds MD) H/O section X2 History of dental surgery Family History (Updated 09/27/21 @ 13:12 by Lorraine Newsome LPN) Diabetes CAD (coronary artery disease) Depression Psychiatric illness COPD (chronic obstructive pulmonary disease) Social History Quit status (tobacco): considering quitting Second hand smoke exposure: Yes Alcohol intake: current Alcohol intake frequency: few times a week Marital status: Single Number of children: 2 Current occupational status: unemployed Current gender identity: Female Pertinent Exam Findings alert, oriented x 3 and procedure specific exam findings (Abdominal examination nontender nondistended soft) Recommendations Surgery/Procedure today (EGD and colonoscopy With possible biopsy) Other Plans: Plan of care; After thorough history and physical examination and reviewing the chart, plan to perform a diagnostic esophagogastroduodenoscopy and diagnostic colonoscopy with possible biopsy and possible polypectomy. I discussed with the patient in detail the risks,benefits,alternatives and indications.The risk of aspiration, bleeding, soft tissue injury, perforation of the stomach/esophagus/colon and other potential concomitant complications were explained to the patient in details also the potential need for Thoracotomy and or Laproscoy/Laparotomy to repair any related complications including but not limited to colectomy and or Closotomy. The patient understood this well and did agree to proceed. Rationale was carefully and clearly discussed with the patient.Appropriate informed consent have been reviewed and signed Verbal and written Instructions were given to the patient for colonoscopy prep Coding Level of Care Code Acute Internet Marketing Assistant for Derick Cortez
[2021-12-08 09:34] VITALS: BP 90/52; PULSE 91; RESP 16; TEMP 36.5; O2SAT 94
[2021-12-08 09:40] VITALS: BP 98/63
[2021-12-08 09:48] VITALS: BP 104/80; PULSE 96; RESP 20; O2SAT 97
--- NOTE | 2021-12-08 14:31 | ANE.PACU2 ---
Inpatient post-anesthesia follow up: Airway intact: Yes Vital signs: Temperature 97.7 F Pulse Rate 96 Respiratory Rate 20 Blood Pressure 104/80 Pulse Oximetry 97 Oxygen Delivery Me thod Room Air Oxygen Flow Rate 3 Fraction of Inspir ed Oxygen Hydration adequate: Yes Nausea and vomiting: No Pain level: 1 Mental status: Baseline
== END 2021-12-08 10:10 | disposition home or self-care (01) ==
PROVIDERS: Anesthesiology; PCP Family Medicine Adult Medicine; Visit Provider Surgery
PROC: 0DJD8ZZ Inspection of Lower Intestinal Tract, Via Natural or Artificial Opening Endoscopic (ICD-10-PCS; CPT 45378; 2021-12-08 08:30)
PROC: 0DJ08ZZ Inspection of Upper Intestinal Tract, Via Natural or Artificial Opening Endoscopic (ICD-10-PCS; CPT 43235; 2021-12-08 08:30)
DX: Z87.19 Personal history of other diseases of the digestive system (principal); K92.1 Melena; R10.11 Right upper quadrant pain; K63.5 Polyp of colon; J44.9 Chronic obstructive pulmonary disease, unspecified; K21.9 Gastro-esophageal reflux disease without esophagitis; F41.9 Anxiety disorder, unspecified; F32.9 Major depressive disorder, single episode, unspecified; F17.210 Nicotine dependence, cigarettes, uncomplicated
CPT/HCPCS: 43235; 45380; 84703; 88305; J2704; J7030

== ENCOUNTER 2022-08-09 12:07 | Emergency (ER) | payer MEDICAID, SELFPAY ==
[2022-08-09 12:12] VITALS: BP 132/102; PULSE 88; RESP 18; TEMP 36.8; O2SAT 99; BMI 27.8
--- NOTE | 2022-08-09 12:35 | ED_ITS ---
HPI - URI/Sore Throat General: Chief Complaint: Upper Respiratory Infection Stated Complaint: cough, headache, congestin Time Seen by Provider: 08/09/22 12:24 History of Present Illness: 42-year-old female comes in today with complaints of sinus pain, sore throat, and cough. Patient reports symptoms for 10 days or more. Patient appears nontoxic. Patient appears in no pain. Patient appears mildly unwell. Patient does smoke 1 pack a day of cigarettes. Patient has a history of anxiety disorder, GERD, and major depression. Associated symptoms: Reports nasal congestion Review of Systems ENMT: Reports: throat pain and nasal congestion [facility] ED PFS: Medical History (Updated 08/09/22 @ 12:37 by ANDERSON Francois) Alcohol abuse The patient has been given referral to AA meeting schedule and to [facility] inpatient and outpatient recovery program upon N[facility] discharge. Alcohol dependence, in remission Allergic rhinitis due to allergen Chronic RUQ pain Colon polyp Dr. Blank Sig Polyp 12/14/21 f/u Complaint of melena Complicated grief Generalized anxiety disorder History of colitis History of hepatitis A Major depressive disorder, recurrent episode Psychiatric care Suicidal ideation Surgical History H/O section X2 History of dental surgery Family History Other CAD (coronary artery disease) COPD (chronic obstructive pulmonary disease) Depression Diabetes Psychiatric illness Social History Smoking and tobacco status: current every day smoker cigarettes Packs smoked per day: 1.5 Years cigarettes smoked: 25 Quit status (tobacco): considering quitting Second hand smoke exposure: Yes Alcohol intake: current Alcohol intake frequency: few times a week Marital status: Single Number of children: 2 Current occupational status: unemployed Current gender identity: Female Female Reproductive History: Date of last menstrual period: 08/02/22 Physical Exam Const: COMMON NORMALS: alert HENMT: NOSE: Nasal discharge present MOUTH: Normal oral and palatal mucosa present THROAT: posterior oropharynx abnormal erythema Neck/C-Spine: COMMON NORMALS: full ROM Resp: COMMON NORMALS: normal respiratory effort and clear to auscultation bilaterally AUSCULTATION: clear to auscultation bilaterally Cardio: COMMON NORMALS: regular rate and regular rhythm RATE: regular rate RHYTHM: regular rhythm GI: COMMON NORMALS: Soft to palpation and non-tender PALPATION: Yes Soft to palpation Extremity: COMMON NORMALS: normal to inspection Neuro: SENSORIUM/ORIENTATION: Yes alert Skin: COMMON NORMALS: turgor normal GENERAL SKIN EXAM: turgor normal Course Vital Signs: Vital signs: Vital Signs Temperature 98.3 F 08/09/22 12:12 Pulse Rate 88 08/09/22 12:12 Respiratory Rate 18 08/09/22 12:12 Blood Pressure 132/102 08/09/22 12:12 Pulse Oximetry 99 08/09/22 12:12 Oxygen Delivery Me thod 08/09/22 12:12 MDM - URI/Sore Throat Medical Decision Making 42-year-old female comes in today for complaints of respiratory difficulty. On exam patient has nasal congestion along with erythema of the throat. Lungs are clear to auscultation. Vital signs are unremarkable except for some mild elevation of blood pressure. Differential diagnosis includes but not limited to rhinosinusitis, upper respiratory infection, COVID-19. COVID-19 antigen test was performed. Patient be treated for a bacterial rhinosinusitis due to illness lasting longer than 10 days. Patient be placed on doxycycline 100 mg 2 times a day for 7 days. Patient was encouraged to use Flonase 1 spray each nostril twice a day until symptoms clear. Recommend follow-up with primary care as needed. Return to ED for worsening symptoms or new concerns. Discharge Plan Discharge Clinical Impression: Acute rhinosinusitis Condition: Stable Prescriptions: New doxycycline monohydrate 100 mg capsule 100 mg PO BID 7 Days Qty: 14 0RF No Action acetaminophen [Tylenol] 325 mg tablet 325 mg PO QID PRN (Reason: Pain) buspirone 15 mg tablet 15 mg PO BID Qty: 60 5RF Rx Instructions: Take 1 tablet by mouth each morning and evening citalopram 40 mg tablet 40 mg PO DAILY Qty: 30 5RF Rx Instructions: take one tablet daily by mouth trazodone 50 mg tablet 50 mg PO BEDTIME PRN (Reason: insomnia) Qty: 30 1RF Rx Instructions: take one-half to one tablet at bedtime, if needed for insomnia omeprazole 20 mg capsule,delayed release(DR/EC) See Rx Instructions .ROUTE .COMPLEX Qty: 30 5RF Dose Instruction: TAKE 1 CAPSULE BY MOUTH EVERY DAY Rx Instructions: TAKE 1 CAPSULE BY MOUTH EVERY DAY dicyclomine 20 mg tablet See Rx Instructions .ROUTE .COMPLEX Qty: 30 3RF Dose Instruction: TAKE 1 TABLET BY MOUTH EVERY 6 HOURS NEEDED FOR FOR ABDOMINAL cramping Rx Instructions: TAKE 1 TABLET BY MOUTH EVERY 6 HOURS NEEDED FOR FOR ABDOMINAL cramping Referrals: Barrera Reynolds MD [Primary Care Provider] - Discharge Diet: Usual diet Discharge Activity: Increase activity as tolerated Patient Instructions: Rhinosinusitis (ED) Activity Restrictions/Additional Instructions: Drink plenty of fluids. Take antibiotic doxycycline 100 mg 2 times a day for 14 days. Use [id number] Flonase nasal spray 1 spray each nostril 2 times a day until symptoms clear. Drink plenty of water with medications. Use acetaminophen and ibuprofen for discomfort or fever. Follow-up with primary care as needed. Return to ED for new concerns. Coding Level of Care Code ED Art Therapy Specialist for Derick Cortez
[2022-08-09] MEDS: dexamethasone 4 mg Tablet 8 MG PO (12:47)
[2022-08-09] MEDS: doxycycline 100 mg Tablet PO (12:47)
[2022-08-09 13:38] LABS: SARS Covid-2 Antigen Negative (Negative)
== END 2022-08-09 13:45 | disposition home or self-care (01) ==
PROVIDERS: Emergency Medicine; Emergency Provider Nurse Practitioner Family; PCP Family Medicine Adult Medicine
DX: J01.90 Acute sinusitis, unspecified (principal); F17.210 Nicotine dependence, cigarettes, uncomplicated; Z20.822 Contact with and (suspected) exposure to COVID-19
CPT/HCPCS: 87426; 99283; J8540

== ENCOUNTER 2022-11-25 14:39 | Emergency (ER) | payer MEDICAID, SELFPAY ==
[2022-11-25 14:41] VITALS: BP 148/104; PULSE 95; RESP 16; TEMP 36.9; O2SAT 98
--- NOTE | 2022-11-25 14:45 | ECG_ITS ---
[facility] Test Date: 2022-11-25 Pat Name: Patricia Londono Department: Room: Gender: Female Solutions Specialist: : 1980 Requested By: Casey Styles Order Number: [id number] Nelly MD: Abbey Crenshaw M.D. Measurements Intervals [place] Rate: 93 P: 43 TX: 139 QRS: 53 QRSD: 89 T: 56 QT: 368 QTc: 459 Interpretive Statements SINUS RHYTHM WITH SINUS ARRHYTHMIA NONSPECIFIC T-WAVE ABNORMALITY No previous ECG available for comparison Electronically Signed On 11-25-2022 20:05:06 RADON INSPECTOR by Abbey Crenshaw M.D. [email or web address] Product Imaging/store/NU/[id number]/[id number] f
[2022-11-25 17:17] VITALS: BP 141/61; PULSE 81; RESP 16; O2SAT 97
--- NOTE | 2022-11-25 17:59 | XRR_ITS ---
PROCEDURE INFORMATION: Exam: XR Chest Exam date and time: 11/25/2022 6:13 PM Age: 42 years old Clinical indication: Pain; Chest pressure; Additional info: Cp TECHNIQUE: Imaging protocol: Radiologic exam of the chest. Views: 1 view. COMPARISON: CT abdomen pelvis w con* [id number] 08/29/2020 3:52 PM FINDINGS: Lungs: Lungs are clear bilaterally. Pleural spaces: No pleural effusion. No pneumothorax. Heart/Mediastinum: The cardiac silhouette and mediastinal contours are unremarkable. Bones/joints: Unremarkable for age. XR/XR chest 1V [id number] IMPRESSION: Negative chest radiograph.
[2022-11-25 18:25] LABS: Basophils # 0.1 10^3/uL (0.0-0.1); Basophils % 0.5 %; Eosinophils % 0.2 %; Hematocrit 47.8 % (37.0-47.0); Hemoglobin 15.5 g/dL (11.5-15.3); Lymphocytes % 22.4 %; Mean Corpuscular HGB Conc 32.4 g/dL (30.0-36.0); Mean Corpuscular Hemoglobin 26.1 pg (28.0-34.0); Mean Corpuscular Volume 80.6 fl (81-99); Mean Platelet Volume 9.3 fL (7.4-10.4); Monocytes # 0.5 10^3/uL (0.2-0.9); Monocytes % 3.8 %; Neutrophils # 9.63 10^3/uL (1.8-7.7); Neutrophils % 72.8 %; Nucleated Red Blood Cells % 0 %; Platelet Count 560 10^3/cmm (130-400); Red Blood Count 5.93 10^6/uL (4.1-5.3); Red Cell Distribution Width 13.7 % (12.1-15.1); White Blood Count 13.2 10^3/uL (4.0-10.0)
--- NOTE | 2022-11-25 18:43 | ED_ITS ---
HPI - Chest Pain General: Chief Complaint: Nausea/Vomiting/Diarrhea Stated Complaint: sob, n/v Time Seen by Provider: 11/25/22 17:54 Source: patient Mode of arrival: ambulatory Limitations: no limitations History of Present Illness: Patient presents to the emergency department today accompanied by for evaluation treatment of generalized left-sided chest pain and left lateral rib pain with associated nausea and vomiting. Patient states she noticed onset this morning and has had issues with chest pains in the past but, indicated she has never had her chest pains evaluated at a medical facility. Patient denies any abdominal pains however, she has not hardly eat or drink much due to her nausea and vomiting. Patient denies any cough, congestion, or sore throat. She denies any fevers. Patient does have a history of reflux and takes medication. Patient does not indicate any difficulty breathing or palpitations. Chart review shows no previous history of any arrhythmia. Associated symptoms: Reports nausea and vomiting; Deny abdominal pain, palpitations or syncope Review of Systems General: Reports: 10 or more systems reviewed and unremarkable except in HPI and below Card: Reports: chest pain; Denies: palpitations or syncope GI: Reports: nausea and vomiting; Denies: abdominal pain [facility] ED PFSH: Medical History (Updated 11/25/22 @ 22:10 by JAH Luz) Alcohol abuse The patient has been given referral to AA meeting schedule and to [facility] inpatient and outpatient recovery program upon NPU discharge. Alcohol dependence, in remission Allergic rhinitis due to allergen Chronic RUQ pain Colon polyp Dr. Blank Sig Polyp 12/14/21 f/u Complaint of melena Complicated grief Generalized anxiety disorder History of colitis History of hepatitis A Major depressive disorder, recurrent episode Psychiatric care Suicidal ideation Surgical History H/O section X2 History of dental surgery Family History Other CAD (coronary artery disease) COPD (chronic obstructive pulmonary disease) Depression Diabetes Psychiatric illness Social History Smoking and tobacco status: current every day smoker cigarettes Packs smoked per day: 1.5 Years cigarettes smoked: 25 Quit status (tobacco): considering quitting Second hand smoke exposure: Yes Alcohol intake: current Alcohol intake frequency: few times a week Marital status: Single Number of children: 2 Current occupational status: unemployed Current gender identity: Female Female Reproductive History: Date of last menstrual period: 08/02/22 Physical Exam Const: COMMON NORMALS: no acute distress, patient oriented x3 and alert HENMT: COMMON NORMALS: normocephalic, atraumatic, hearing grossly normal bilaterally and moist oral mucous membranes HEAD & SCALP: normocephalic and atraumatic Eye: COMMON NORMALS: Equal, round and reactive pupils present, EOMs intact bilaterally and conjunctivae normal CONJUNCTIVA: Yes conjunctivae normal PUPIL: Yes Equal, round and reactive pupils present Neck/C-Spine: COMMON NORMALS: full ROM and no JVD Lymph: LYMPHATIC: no lymphadenopathy noted Resp: COMMON NORMALS: normal respiratory effort, No retractions, No use of accessory muscles and clear to auscultation bilaterally AUSCULTATION: clear to auscultation bilaterally Cardio: COMMON NORMALS: no JVD, regular rate and regular rhythm RATE: regular rate RHYTHM: regular rhythm GI: OTHER: Diminished or quiet bowel sounds throughout. Abdomen is soft. No tenderness on palpation. : COMMON NORMALS: Yes no CVA tenderness BLADDER/KIDNEY EXAM: Yes no CVA tenderness Back/Pelvis: COMMON NORMALS: no CVA tenderness, no thoracic nor lumbar tenderness and thoraco-lumbar ROM normal Extremity: COMMON NORMALS: normal to inspection, full ROM and capillary refill normal Neuro: COMMON NORMALS: patient oriented x3 SENSORIUM/ORIENTATION: Yes alert Psych: COMMON NORMALS: mental status grossly normal, Normal thought process present, cooperative, normal affect and activity/motor behavior normal THOUGHT PROCESS: Normal thought process present Skin: COMMON NORMALS: no rashes or lesions noted and no wounds GENERAL SKIN EXAM: no rashes or lesions noted Course Vital Signs: Vital signs: Vital Signs Temperature 98.5 F 11/25/22 14:41 Pulse Rate 80 11/25/22 21:02 Respiratory Rate 16 11/25/22 21:54 Blood Pressure 156/91 11/25/22 21:54 Pulse Oximetry 97 11/25/22 21:02 Oxygen Delivery Me thod 11/25/22 17:17 MDM - Chest Pain Medical Decision Making Patient presented to the emergency department today for evaluation treatment of generalized left-sided chest pains, nausea, vomiting, and diarrhea. Patient indicated she has had episodes like this in the past but has never had full evaluation. Patient had EKG performed upon arrival to the department which was indicated to be nonacute. Patient's troponins were negative. Chest x-ray was negative. General lab work was otherwise unremarkable as she has been vomiting which could account for the slightly elevated white count but patient did have findings of a urinary tract infection which could also contribute. I did request that we perform a urine culture and patient was given a first round of antibiotics here in the emergency department as her nausea, vomiting could be related to urinary findings. Patient was told to watch for any new onset low abdominal pains, vaginal pain, hematuria, or dysuria while being treated. Patient was given further antibiotic prescription sent to the pharmacy on her behalf to be picked up and continued tomorrow. Patient was also given ant inausea medicine as we discussed the importance of her staying well-hydrated. I requested that she follow-up with her primary care doctor in 24 to 48 hours for recheck of all of her symptoms but, was told return to the emergency department for signs of worsening left-sided chest pain, shortness of breath, syncope, continued nausea vomiting with concerns of dehydration or mid back pains. Differential Diagnosis Likely acute myocardial infarction and cardiac arrest (pleuricy, pneumonia, pleural effusion, gastroenteritis) Lab Data 11/25/22 18:10 11/25/22 18:10 Radiology Impressions Chest X-Ray 11/25/22 17:59 IMPRESSION: Negative chest radiograph. Laboratory Results WBC 13.2 10^3/uL (4.0-10.0) H 11/25/22 18:10 RBC 5.93 10^6/uL (4.1-5.3) H 11/25/22 18:10 Hgb 15.5 g/dL (11.5-15.3) H 11/25/22 18:10 Hct 47.8 % (37.0-47.0) H 11/25/22 18:10 MCV 80.6 fl (81-99) L 11/25/22 18:10 MCH 26.1 pg (28.0-34.0) L 11/25/22 18:10 MCHC 32.4 g/dL (30.0-36.0) 11/25/22 18:10 RDW 13.7 % (12.1-15.1) 11/25/22 18:10 Plt Count 560 10^3/cmm (130-400) H 11/25/22 18:10 MPV 9.3 fL (7.4-10.4) 11/25/22 18:10 Neut % (Auto) 72.8 % 11/25/22 18:10 Lymph % (Auto) 22.4 % 11/25/22 18:10 [place] % (Auto) 3.8 % 11/25/22 18:10 Eos % (Auto) 0.2 % 11/25/22 18:10 Baso % (Auto) 0.5 % 11/25/22 18:10 Neut # (Auto) 9.63 10^3/uL (1.8-7.7) H 11/25/22 18:10 Lymph # (Auto) 3.0 10^3/uL (0.8-4.8) 11/25/22 18:10 [place] # (Auto) 0.5 10^3/uL (0.2-0.9) 11/25/22 18:10 Eos # (Auto) 0.0 10^3/uL (0.0-0.8) 11/25/22 18:10 Baso # (Auto) 0.1 10^3/uL (0.0-0.1) 11/25/22 18:10 Nucleated RBC % (auto) 0 % 11/25/22 18:10 Nucleated RBCs # 0.0 /100WBC 11/25/22 18:10 Sodium 135 mmol/L (136-145) L 11/25/22 18:10 Potassium 4.0 mmol/L (3.5-5.1) 11/25/22 18:10 Chloride 98 mmol/L (98-107) 11/25/22 18:10 Carbon Dioxide 23 mmol/L (22-29) 11/25/22 18:10 Anion Gap 18.0 (5-19) 11/25/22 18:10 BUN 4 mg/dL (6-20) L 11/25/22 18:10 Creatinine 0.6 mg/dL (0.5-0.9) 11/25/22 18:10 GFR Calculation 110.7 mL/min (90-130) 11/25/22 18:10 Glucose 98 mg/dL (65-115) 11/25/22 18:10 Calculated Osmolality 277 mOsm/kg (285-295) L 11/25/22 18:10 Calcium 9.4 mg/dL (8.5-10.5) 11/25/22 18:10 Total Bilirubin 0.3 mg/dL (0.15-1.2) 11/25/22 18:10 AST 25 U/L (0-32) 11/25/22 18:10 ALT 16 U/L (0-33) 11/25/22 18:10 Alkaline Phosphatase 124 U/L (35-105) H 11/25/22 18:10 Troponin T Baseline 7 ng/L (0-10) 11/25/22 18:10 Troponin T 120 Minute 6.00 ng/L (0-10) 11/25/22 20:10 Delta Troponin T -1.00 ABS# (0-10) L 11/25/22 20:10 Total Protein 7.7 g/dL (6.6-8.7) 11/25/22 18:10 Albumin 4.4 g/dL (3.5-5.2) 11/25/22 18:10 Globulin 3.3 g/dL (1.3-4.6) 11/25/22 18:10 Lipase 33 U/L (13-60) 11/25/22 18:10 HCG, Qual Negative (Negative) 11/25/22 20:40 Urine Color Red (Yellow) 11/25/22 20:40 Urine Appearance Hazy (CLEAR) A 11/25/22 20:40 Urine pH 9 (5-7) H 11/25/22 20:40 Ur Specific [place] 1.010 (1.005-1.030) 11/25/22 20:40 Urine Protein 1+ (Negative) H 11/25/22 20:40 Urine Glucose (UA) Norm (Normal) 11/25/22 20:40 Urine Ketones Negative (Negative) 11/25/22 20:40 Urine Blood 3+ (Negative) H 11/25/22 20:40 Urine Nitrate Negative (Negative) 11/25/22 20:40 Urine Bilirubin Neg (Negative) 11/25/22 20:40 Prot Sulfosalicylic Acd Negative (Negative) 11/25/22 20:40 Urine Urobilinogen Neg mg/dL (Negative) 11/25/22 20:40 Ur Leukocyte Esterase 1+ (Negative) H 11/25/22 20:40 Urine RBC >100 /hpf (0-2) H 11/25/22 20:40 Urine WBC 5-10 /hpf (0-5) H 11/25/22 20:40 Ur Squamous Epith Cells 10-15 /hpf (0-5) H 11/25/22 20:40 Amorphous Sediment Not Reportable 11/25/22 20:40 Urine Bacteria 1+ /hpf (NONE) H 11/25/22 20:40 Urine Mucus Trace /hpf 11/25/22 20:40 Discharge Plan Discharge Patient Disposition: Home Clinical Impression: UTI (urinary tract infection), Left-sided chest pain, Nausea & vomiting Condition: Stable Prescriptions: New ondansetron 4 mg tablet,disintegrating 4 mg PO Q8H 5 Days Qty: 15 0RF Macrobid 100 mg capsule 100 mg PO BID 7 Days Qty: 14 0RF Rx Instructions: must administer with a meal/food No Action acetaminophen [Tylenol] 325 mg tablet 325 mg PO QID PRN (Reason: Pain) buspirone 15 mg tablet 15 mg PO BID Qty: 60 5RF Rx Instructions: Take 1 tablet by mouth each morning and evening trazodone 50 mg tablet 50 mg PO BEDTIME PRN (Reason: insomnia) Qty: 30 1RF Rx Instructions: take one-half to one tablet at bedtime, if needed for insomnia omeprazole 20 mg capsule,delayed release(DR/EC) See Rx Instructions .ROUTE .COMPLEX Qty: 30 5RF Dose Instruction: TAKE 1 CAPSULE BY MOUTH EVERY DAY Rx Instructions: TAKE 1 CAPSULE BY MOUTH EVERY DAY dicyclomine 20 mg tablet See Rx Instructions .ROUTE .COMPLEX Qty: 30 3RF Dose Instruction: TAKE 1 TABLET BY MOUTH EVERY 6 HOURS NEEDED FOR FOR ABDOMINAL cramping Rx Instructions: TAKE 1 TABLET BY MOUTH EVERY 6 HOURS NEEDED FOR FOR ABDOMINAL cramping citalopram 40 mg tablet See Rx Instructions .ROUTE .COMPLEX Qty: 30 5RF Dose Instruction: TAKE 1 TABLET BY MOUTH EVERY DAY (exelan brand ONLY) Rx Instructions: TAKE 1 TABLET BY MOUTH EVERY DAY (exelan brand ONLY) Flonase Allergy Relief 50 mcg/actuation spray,suspension 1 spray intranasal BID Qty: 16 0RF Rx Instructions: administer into each nostril Discharge Orders: Discharge ED (Routine); Ordered 11/25/22 Ordered By: Anette Carrera Referrals: Barrera Reynolds MD [Primary Care Provider] - Discharge Diet: Advance as tolerated Discharge Activity: Increase activity as tolerated Patient Instructions: Chest Pain (ED), Urinary Tract Infection in Women (ED) Activity Restrictions/Additional Instructions: Cardiac evaluation today revealed no acute findings. Your chest x-ray was clear. Lab work was otherwise unremarkable but your urinalysis did show concer ns for an infection. As you do have upset stomach, nausea, vomiting, we did provide your first dosing of antibiotics through your IV. I have sent the rest of your prescription to the pharmacy on your behalf as well as some antinausea medication as will be extremely important that you continue to push fluids and stay hydrated over the next several days while you continue to take your medication. I highly recommend you continue taking your omeprazole for symptoms of reflux. I also requested a follow-up appointment with your primary care doctor in 24 to 48 hours for recheck but, you should return to the emergency department for any change or acute worsening of any signs of abdominal pains, fevers, left-sided chest pain, passing out, or palpitations. Coding Level of Care Code ED Process Control Tech for Derick Fwd Exam Comprehensive
[2022-11-25 18:45] LABS: Troponin(5th) Baseline 7 ng/L (0-10)
[2022-11-25 18:47] LABS: Alanine Aminotransferase 16 U/L (0-33); Albumin Level 4.4 g/dL (3.5-5.2); Alkaline Phosphatase 124 U/L (35-105); Aspartate Amino Transferase 25 U/L (0-32); Blood Urea Nitrogen 4 mg/dL (6-20); Calcium 9.4 mg/dL (8.5-10.5); Carbon Dioxide 23 mmol/L (22-29); Chloride 98 mmol/L (98-107); Globulin 3.3 g/dL (1.3-4.6); Glomerular Filtration Rate 110.7 mL/min (90-130); Glucose 98 mg/dL (65-115); Lipase 33 U/L (13-60); Osmolality Calculated 277 mOsm/kg (285-295); Sodium 135 mmol/L (136-145); Total Bilirubin 0.3 mg/dL (0.15-1.2); Total Protein 7.7 g/dL (6.6-8.7)
[2022-11-25 19:00] VITALS: BP 127/82; PULSE 92; RESP 16; O2SAT 98
[2022-11-25 19:30] VITALS: BP 149/88; PULSE 78; RESP 16; O2SAT 98
[2022-11-25] MEDS: lidocaine 2% viscous 15 ML, aluminum-mag hydrox-simethicon 30 ML, sucralfate oral liq 1 GM PO (19:46)
[2022-11-25] MEDS: ondansetron 2 mg/ML SDV 2 mL 4 MG IVP (19:46)
[2022-11-25] MEDS: sodium chloride 0.9% 1,000 ML 999 ML IV (19:47)
[2022-11-25 20:56] LABS: HCG Qualitative Urine. Negative (Negative)
[2022-11-25 21:02] VITALS: BP 148/83; PULSE 80; RESP 16; O2SAT 97
[2022-11-25 21:06] LABS: Bilirubin Urine Neg (Negative); Blood Urine 3+ (Negative); Glucose Urine UA Norm (Normal); Ketones Urine Negative (Negative); Nitrate Urine Negative (Negative); Protein Urine 1+ (Negative); Urine Appearance Hazy (CLEAR); Urine Color Red (Yellow); pH Urine 9 (5-7)
[2022-11-25 21:07] LABS: Add Urine Microscopic? YES; Leukocyte Esterase Urine 1+ (Negative); Sulfosalicylic Acid Urine Negative (Negative); Urobilinogen Urine Neg (Negative)
[2022-11-25 21:09] LABS: RBC Urine >100 /hpf (0-2)
[2022-11-25 21:10] LABS: Bacteria Urine 1+ /hpf; Mucus Urine TRACE /hpf
[2022-11-25 21:11] LABS: Add Urine Culture? Yes
[2022-11-25 21:54] VITALS: BP 156/91; RESP 16
[2022-11-25] MEDS: cefTRIAXone 1,000 MG in sodium chloride 0.9% (plus) 50 ML 100 MG IV (21:58)
== END 2022-11-25 22:24 | disposition home or self-care (01) ==
PROVIDERS: Emergency Medicine; Emergency Provider Physician Assistant; PCP Family Medicine Adult Medicine
DX: R07.9 Chest pain, unspecified (principal); N39.0 Urinary tract infection, site not specified; R11.2 Nausea with vomiting, unspecified; F17.210 Nicotine dependence, cigarettes, uncomplicated
CPT/HCPCS: 36415; 71045; 80053; 81001; 81025; 83690; 84484; 85025; 87086; 93005; 96365; 96375; 99285; J0696; J2405; J7030

== ENCOUNTER → 2024-06-08 18:57 | Outpatient (BNVA) | payer MEDICAID, SELFPAY | PROVIDERS: PCP Family Medicine Adult Medicine; Visit Provider Nurse Practitioner Family | DX: R39.9 Unspecified symptoms and signs involving the genitourinary system (principal); R30.0 Dysuria | CPT/HCPCS: 81000; 87491; 87591 ==

== ENCOUNTER 2024-06-16 10:04 | Inpatient (IN) | payer MEDICAID, SELFPAY ==
[2024-06-16 10:08] VITALS: BP 132/91; PULSE 93; TEMP 36.7; O2SAT 99; BMI 27.4
--- NOTE | 2024-06-16 10:09 | ED.C_ITS ---
HPI - Psych 2 General: Chief Complaint: Psychiatric Symptoms Stated Complaint: MHE Time Seen by Provider: 06/16/24 10:05 Source: patient Mode of arrival: ambulatory Limitations: no limitations History of Present Illness: Patient is a 43-year-old female here for help regarding her worsening anxiety and depression. Patient tells me I am so stressed out and I do not know how much more I can take . Patient has a history of anxiety and depression and is on medication for this. She states she sees her primary care provider, Dr. Reynolds. She feels like meds are not working. She reports increased stress with, her kids, her boyfriend, work, etc. patient is very tearful and anxious on exam. She does report a previous suicide attempt 20 years ago. She is a heavy alcohol drinker. Denies drug use. She states she is not suicidal or homicidal. No hallucinations. MD complaint: feels depressed Onset (ago): day(s) Duration: constant History of same: Yes Relieving factors: none Exacerbating factors: alcohol and other (life stressors) Context: significant life stressor Associated psychiatric symptoms: depression Associated symptoms: Reports depression; Deny auditory hallucinations, visual hallucinations, homicidal ideation or suicidal ideation Review of Systems 2 Const: Denies: fever(s) or chills Card: Denies: chest pain, palpitations, lightheadedness or syncope Resp: Denies: dyspnea GI: Denies: abdominal pain, nausea, vomiting or diarrhea Skin/Breast: Denies: rash Neuro: Denies: headache(s) Psych: Reports: anxiety, depression and hopelessness; Denies: paranoia, visual hallucinations, auditory hallucinations, suicidal ideation or homicidal ideation [facility] ED 2 PFSH: Medical History Weight loss, unintentional Encounter for smoking cessation counseling COPD (chronic obstructive pulmonary disease) with emphysema COPD suggested by initial evaluation Alcohol dependence Seasonal affective disorder Chain smoker 1.5 to 2 ppd since age 15 Allergic rhinitis due to allergen Colon polyp Dr. Blank Sig Polyp 12/14/21 f/u History of colitis Major depressive disorder, recurrent episode Suicidal ideation Alcohol abuse The patient has been given referral to AA meeting schedule and to [facility] inpatient and outpatient recovery program upon NPU discharge. Complicated grief History of hepatitis A Surgical History History of dental surgery H/O section X2 Family History Other CAD (coronary artery disease) COPD (chronic obstructive pulmonary disease) Depression Diabetes Psychiatric illness Social History Smoking and tobacco/nicotine status: unknown if used tobacco/nicotine Quit status (tobacco/nicotine): considering quitting Second hand smoke exposure: Yes Alcohol intake: current Alcohol intake frequency: few times a week Substance/Drug Use: never Marital status: Single Number of children: 2 Current occupational status: unemployed Current gender identity: Female Physical Exam 2 Const: COMMON NORMALS: average body habitus, patient oriented x3, no limitations, healthy appearing, alert and well nourished GENERAL APPEARANCE: cooperative, well kempt and anxious ORIENTATION/CONSCIOUSNESS: Yes awake, Yes oriented to person, Yes oriented to place and Yes oriented to time Resp: COMMON NORMALS: normal respiratory effort and clear to auscultation bilaterally AUSCULTATION: clear to auscultation bilaterally Cardio: COMMON NORMALS: regular rate and regular rhythm RATE: regular rate RHYTHM: regular rhythm Neuro: COMMON NORMALS: patient oriented x3 SENSORIUM/ORIENTATION: Yes alert, Yes oriented to person, Yes oriented to place and Yes oriented to time Psych: COMMON NORMALS: mental status grossly normal, Normal thought process present, cooperative, speech normal, activity/motor behavior normal, denies hallucinations, denies homicidal ideation and denies suicidal ideation A PPEARANCE: Yes grossly normal and Yes well kempt ATTITUDE: Yes calm A CTIVITY/MOTOR BEHAVIOR: Yes appropriate eye contact and No psychomotor agitation SPEECH: Yes normal speech MOOD & AFFECT: Yes depressed mood and Yes tearful THOUGHT PROCESS: Normal thought process present A TTENTION/CONCENTRATION: Yes attention grossly intact and Yes concentration grossly intact MEMORY/COGNITION: Yes memory grossly intact and Yes cognition grossly intact INSIGHT: Good insight present (Psych) JUDGEMENT: Good judgement present (Psych) Course 2 Consultations: Consultation #1: Dr. Trent-accepts to NPU Vital Signs: Vital signs: Vital Signs Temperature 98.1 F 06/16/24 10:08 Pulse Rate 93 06/16/24 10:08 Blood Pressure 132/91 06/16/24 10:08 Pulse Oximetry 99 06/16/24 10:08 Oxygen Delivery Me thod Room Air 06/16/24 10:08 MDM - Psych Medical Decision Making Patient will be an admit to NPU for treatment and evaluation of worsening anxiety and depression as well as chronic alcohol abuse. Lab Data 06/16/24 10:22 06/16/24 10:22 Laboratory Results WBC 11.75 10^3/uL (3.29-11.43) H 06/16/24 10:22 RBC 5.41 10^6/uL (3.85-5.65) 06/16/24 10:22 Hgb 13.40 g/dL (11.27-16.99) 06/16/24 10:22 Hct 43.7 % (36-47) 06/16/24 10:22 MCV 80.8 fl (85-98) L 06/16/24 10:22 MCH 24.8 pg (27-33) L 06/16/24 10:22 MCHC 30.7 g/dL (30-55) 06/16/24 10:22 RDW 20.4 % (12.1-15.1) H 06/16/24 10:22 Plt Count 540 10^3/cmm (157-399) H 06/16/24 10:22 MPV 9.1 fL (7.4-10.4) 06/16/24 10:22 Neut % (Auto) 56.6 % 06/16/24 10:22 Lymph % (Auto) 28.3 % 06/16/24 10:22 [place] % (Auto) 8.1 % 06/16/24 10:22 Eos % (Auto) 5.4 % 06/16/24 10:22 Baso % (Auto) 0.8 % 06/16/24 10:22 Neut # (Auto) 6.66 10^3/uL (1.8-7.7) 06/16/24 10:22 Lymph # (Auto) 3.3 10^3/uL (0.8-4.8) 06/16/24 10:22 [place] # (Auto) 1.0 10^3/uL (0.2-0.9) H 06/16/24 10:22 Eos # (Auto) 0.6 10^3/uL (0.0-0.8) 06/16/24 10:22 Baso # (Auto) 0.1 10^3/uL (0.0-0.1) 06/16/24 10:22 Nucleated RBC % (auto) 0 % 06/16/24 10:22 Nucleated RBCs # 0.0 /100WBC 06/16/24 10:22 Sodium 137 mmol/L (136-145) 06/16/24 10:22 Potassium 3.6 mmol/L (3.5-5.1) 06/16/24 10:22 Chloride 102 mmol/L (98-107) 06/16/24 10:22 Carbon Dioxide 22 mmol/L (22-29) 06/16/24 10:22 Anion Gap 16.6 (5-19) 06/16/24 10:22 BUN 3 mg/dL (6-20) L 06/16/24 10:22 Creatinine 0.5 mg/dL (0.5-0.9) 06/16/24 10:22 GFR Calculation 136.0 mL/min (90-130) H 06/16/24 10:22 Glucose 97 mg/dL (65-115) 06/16/24 10:22 Calculated Osmolality 280 mOsm/kg (285-295) L 06/16/24 10:22 Calcium 8.8 mg/dL (8.5-10.5) 06/16/24 10:22 Total Bilirubin 0.2 mg/dL (0.15-1.2) 06/16/24 10:22 AST 12 U/L (0-32) 06/16/24 10:22 ALT 7 U/L (0-33) 06/16/24 10:22 Alkaline Phosphatase 219 U/L (35-105) H 06/16/24 10:22 Total Protein 7.9 g/dL (6.6-8.7) 06/16/24 10:22 Albumin 3.9 g/dL (3.5-5.2) 06/16/24 10:22 Globulin 4.0 g/dL (1.3-4.6) 06/16/24 10:22 HCG, Qual Negative (Negative) 06/16/24 10:22 Salicylates < 0.3 mg/dL (3-10) L 06/16/24 10:22 Urine Opiates Screen Negative ng/mL (Negative) 06/16/24 10:20 Acetaminophen < 5.0 ug/mL (10-30) L 06/16/24 10:22 Ur Barbiturates Screen Negative ng/mL (Negative) 06/16/24 10:20 Ur Phencyclidine Scrn Negative ng/mL (Negative) 06/16/24 10:20 Ur Amphetamines Screen Negative ng/mL (Negative) 06/16/24 10:20 U Benzodiazepines Scrn Positive ng/mL (Negative) H 06/16/24 10:20 Urine Cocaine Screen Negative ng/mL (Negative) 06/16/24 10:20 U Marijuana (THC) Screen Negative ng/mL (Negative) 06/16/24 10:20 Ethyl Alcohol 21 mg/dL (0-10) H 06/16/24 10:22 No radiology studies performed this visit Discharge Plan Discharge Patient Disposition: Admitted As Inpatient Clinical Impression: Depression, Acute anxiety, Chronic alcohol abuse Condition: Stable Coding Level of Care Code ED Non Morse Intercept Technician for Derick Cortez
[2024-06-16 10:37] LABS: Basophils # 0.1 10^3/uL (0.0-0.1); Basophils % 0.8 %; Eosinophils # 0.6 10^3/uL (0.0-0.8); Eosinophils % 5.4 %; Hematocrit 43.7 % (36-47); Lymphocytes # 3.3 10^3/uL (0.8-4.8); Lymphocytes % 28.3 %; Mean Corpuscular HGB Conc 30.7 g/dL (30-55); Mean Corpuscular Hemoglobin 24.8 pg (27-33); Mean Corpuscular Volume 80.8 fl (85-98); Mean Platelet Volume 9.1 fL (7.4-10.4); Monocytes % 8.1 %; Neutrophils # 6.66 10^3/uL (1.8-7.7); Neutrophils % 56.6 %; Nucleated Red Blood Cells % 0 %; Platelet Count 540 10^3/cmm (157-399); Red Blood Count 5.41 10^6/uL (3.85-5.65); Red Cell Distribution Width 20.4 % (12.1-15.1); White Blood Count 11.75 10^3/uL (3.29-11.43)
[2024-06-16 10:44] LABS: Amphetamines Screen Urine Negative (Negative); Barbiturates Screen Urine Negative (Negative); Benzodiazepines Screen Urine Positive (Negative); Cocaine Screen Urine Negative (Negative); Opiate Screen Urine Negative (Negative); PCP Screen Urine Negative (Negative); THC Screen Urine Negative (Negative)
[2024-06-16 10:44] LABS: HCG, Serum Qual Negative (Negative)
[2024-06-16 10:47] LABS: Alanine Aminotransferase 7 U/L (0-33); Albumin Level 3.9 g/dL (3.5-5.2); Alcohol Level 21 mg/dL (0-10); Alkaline Phosphatase 219 U/L (35-105); Anion Gap 16.6 (5-19); Aspartate Amino Transferase 12 U/L (0-32); Blood Urea Nitrogen 3 mg/dL (6-20); Calcium 8.8 mg/dL (8.5-10.5); Carbon Dioxide 22 mmol/L (22-29); Chloride 102 mmol/L (98-107); Creatinine Clr Calc Pharmacy 133.8817; Glucose 97 mg/dL (65-115); Osmolality Calculated 280 mOsm/kg (285-295); Potassium 3.6 mmol/L (3.5-5.1); Sodium 137 mmol/L (136-145); Total Bilirubin 0.2 mg/dL (0.15-1.2); Total Protein 7.9 g/dL (6.6-8.7)
[2024-06-16 10:48] LABS: Acetaminophen < 5.0 ug/mL (10-30); Salicylate < 0.3 mg/dL (3-10)
[2024-06-16 12:15] VITALS: BP 142/94; PULSE 78; RESP 16; TEMP 37; O2SAT 100
[2024-06-16 12:23] VITALS: BP 132/91; PULSE 93; TEMP 36.7; O2SAT 99
--- NOTE | 2024-06-16 13:24 | PC.NURSE ---
ADMIT NOTE PT CAME TO THE ER WITH COMPLAINTS FOR INCREASING ANXIETY AND DEPRESSION. UPON ADMIT TO THE NPU PT IS FLAT IN AFFECT. PT STATES THAT SHE IS HERE BECAUSE SHE IS STRESSED AND HER MEDICATIONS ARE NOT WORKING. PT ENDORSES A NUMBER OF LIFE STRESSERS INCLUDING HER SIGNIFICANT OTHER, CHILDREN, AND WORK. PT CURRENTLY DENIES SI/HI/AH/VH. PT ENDORSES FREQUENT ALCOHOL USE. PT STATES THAT SHE DRINKS UP TO 2 PINTS OF WHISKEY A DAY. PT IS COOPERATIVE WITH ASSESSMENT. PT STATES THAT SHE TEETH ARE BAD SO SOMETHING ARE HARD TO CHEW.
[2024-06-16 14:00] VITALS: BP 142/94; PULSE 78; RESP 16; TEMP 37; O2SAT 100
[2024-06-16] MEDS: nicotine 2 mg Gum BUCCAL ×2 (15:29→20:15)
[2024-06-16] MEDS: acetaminophen 325 mg Tablet 650 MG PO (15:29)
[2024-06-16 16:00] VITALS: BP 109/71; PULSE 84; RESP 20; TEMP 37.2; O2SAT 97
[2024-06-16 19:56] VITALS: BP 118/81; PULSE 75; RESP 18; TEMP 37; O2SAT 99
[2024-06-17] VITALS (7 sets, daily range): BP systolic 100–139; BP diastolic 66–85; PULSE 73–91; RESP 15–18; TEMP 36.4–37; O2SAT 96–100
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
[2024-06-17] MEDS: folic acid 1 mg Tablet PO (09:04)
[2024-06-17] MEDS: multivitamin therapeutic Tablet 1 TAB PO (09:04)
[2024-06-17] MEDS: thiamine 100 mg Tablet PO (09:04)
[2024-06-17] MEDS: acetaminophen 325 mg Tablet 650 MG PO ×2 (09:04→14:25)
[2024-06-17] MEDS: nicotine 21 mg Patch 1 PATCH TRANSDERMA (09:07)
--- NOTE | 2024-06-17 09:28 | PC.NURSE ---
RESTING IN BED. PT STATES SHE DID NOT SLEEP GOOD LAST NIGHT. PT WAS EDUCATED ON PRN'S FOR SLEEP AND ANXIETY, PT VERBALIZED UNDERSTANDING. PT REPORTS PAIN IN BACK 04/27, UNIT CONTROL WORKER NOTIFIED TO GIVE TYLENOL ORDERED. RATES ANXIETY AND DEPRESSION /. PT IS NOTED TO HAVE A FLAT AFFECT AND DEPRESSED MOOD, EVASIVE WITH ASSESSMENT. REMAINS ON CIWA PROTOCOL FOR ALCOHOL WITHDRAWAL AND SCORED 1. PT STATES GOAL FOR THE DAY IS TO GET MY MEDS FIGURED OUT. ALL QUESTIONS ANSWERED AND SUPPORT WAS VOICED.
--- NOTE | 2024-06-17 16:30 | PC.NURSE ---
IN DAY ROOM PT REPORTS FEELING SHAKY AND NEEDS A DRINK CIWA COMPLETED, SCORED 10, ATIVAN 2 MG GIVEN PER CIWA PROTOCOL. VITALS WNL.
[2024-06-17] MEDS: LORazepam 2 mg Tablet PO (16:40)
[2024-06-17] MEDS: hyDROXYzine 25 mg Capsule 50 MG PO (20:31)
[2024-06-17] MEDS: quetiapine XR (24HR) 50 mg Tablet PO (20:31)
[2024-06-18 04:00] VITALS: BP 100/66; PULSE 77; RESP 16; TEMP 36.4; O2SAT 96
[2024-06-18 08:00] VITALS: BP 108/71; PULSE 87; RESP 16; O2SAT 97
[2024-06-18] MEDS: multivitamin therapeutic Tablet 1 TAB PO (08:34)
[2024-06-18] MEDS: thiamine 100 mg Tablet PO (08:34)
[2024-06-18] MEDS: folic acid 1 mg Tablet PO (08:34)
[2024-06-18] MEDS: nicotine 21 mg Patch 1 PATCH TRANSDERMA (10:56)
[2024-06-18 12:00] VITALS: BP 106/68; PULSE 78; RESP 16; TEMP 36.9; O2SAT 97
[2024-06-18 16:00] VITALS: BP 113/79; PULSE 78; RESP 16; O2SAT 99
[2024-06-18] MEDS: OLANZapine 5 mg ODT PO (16:35)
--- NOTE | 2024-06-18 16:35 | PC.NURSE ---
AT NURSES STATION REQUESTING MEDS FOR ALCOHOL WITHDRAW PT SCORED 8,DID NOT QUALIFY FOR ATIVAN BUT MED NURSE WILL GIVE ZYDIS 5 MG ORDERED. SUPPORT VOICED.
--- NOTE | 2024-06-18 16:46 | P.NPUPN_ITS ---
Subjective NPU 2 Subjective: 43-year-old female with a history of bip olar disorder and alcohol dependence admitted with worsening depression and suicidal ideation. She had not endorsed any alcohol withdrawal symptoms. She had reported some hesitancy about consideration for inpatient substance abuse treatment despite significant use for several years and potential physically adverse consequences. She reported no hallucinations or paranoia. She had reported having slept better on the Seroquel last night. She had endorsed some feelings of hopelessness. She reported low energy and reported feeling tired. She had not had any alcohol related withdrawal symptoms and clearly requested Whiskey and received Ativan prn today. Mental Status Exam 2 MSE Comments: This is a 43-year-old female who appears her stated age. Patient appeared in more distress this morning. She appeared in mild to moderate distress. Her gait was within normal limits. Her hygiene was poor. There was evidence of mild tremors. Her speech was normal in regards to rate rhythm and prosody. Her mood was described as depressed. Her affect is flat and mood congruent. Her thought process was linear logical and goal-directed. Her thought content showed no evidence of active homicidal ideation. She had endorsed suicidal ideation with no active plan. There was no clear evidence of delusional thinking. She did not appear to be responding to internal stimuli. Her recent remote memory appeared intact. Her attention span was fair. Her insight is limited. Her judgment was poor. Her impulse control appeared poor as well. Vitals/I&O/Wt Last Vital Signs Temp 98.5 F 06/18/24 12:00 Pulse 78 06/18/24 16:00 Resp 16 06/18/24 16:00 BP 113/79 06/18/24 16:00 Pulse Ox 99 06/18/24 16:00 O2 Del Method Room Air 06/17/24 16:00 Data NPU 06/16/24 10:22 06/16/24 10:22 A&P Assessment and plan (1) Bipolar 2 disorder, major depressive episode: (2) Anxiety disorder: Qualifiers: Anxiety disorder type: generalized anxiety disorder Qualified Code(s): F41.1 - Generalized anxiety disorder Plan 43-year-old female who presents with symptoms suggestive of bipolar depression currently reporting worsening depression and continued use of alcohol on a daily basis despite adverse consequences. 1.? Engage patient in individual milieu and group therapy. #2?? Recommend sober living treatment at the highest level of care to which the patient is willing to commit. #3??? CIWA for alcohol withdrawal #4?? TO-15 minute checks #5?? Will attempt to gather collateral information #6 Restart outpatient medications. Hold Prozac, and discontinue Buspar. Increase Seroquel [id number] xr to target bipolar depression. Involuntary Hold Information 2 96 Hour Hold: 96 Hour Involuntary Admission: No Attestations NPU 2 Medical Necessity Statement*: Inpatient hospitalization is medically necessary and deemed to ?be ?the clinically appropriate intervention ?at this time.? We will monitor/initiate medications and make changes as indicated.? The patient?s likely length of stay 5-7 days. Coding Level of Care Code Acute Code for [facility] Fwd Diagnoses Bipolar 2 disorder, major depressive episode F31.81 Generalized anxiety disorder F41.1 Anxiety disorder type: generalized anxiety disorder
[2024-06-18 19:53] VITALS: BP 106/67; PULSE 78; RESP 18; TEMP 37; O2SAT 97
[2024-06-18] MEDS: quetiapine XR (24HR) 50 mg Tablet PO (20:55)
[2024-06-18 23:59] VITALS: BP 103/68; PULSE 60; RESP 16; TEMP 36.6; O2SAT 97
[2024-06-19 04:00] VITALS: BP 109/70; PULSE 82; RESP 15; TEMP 36.6; O2SAT 96
[2024-06-19 08:00] VITALS: BP 133/78; PULSE 101; RESP 20; TEMP 36.8; O2SAT 97
[2024-06-19] MEDS: fluticasone nasal spray 16gm Btl 1 SPRAY INTRANASAL ×2 (08:24→20:01)
[2024-06-19] MEDS: folic acid 1 mg Tablet PO (08:24)
[2024-06-19] MEDS: thiamine 100 mg Tablet PO (08:24)
[2024-06-19] MEDS: multivitamin therapeutic Tablet 1 TAB PO (08:24)
--- NOTE | 2024-06-19 08:38 | PC.NURSE ---
Patient denies avh and si/hi. She states she slept well. She endorses back pain at a 4/10, but says she wants to try to walk it off before trying medication. When patient came to the nurses' desk to take her medications, which are 3 different vitamins, she stated, no, no. I don't want to take that. Actually, I'll go ahead and take it. I'm tired of taking this shit.
[2024-06-19 12:00] VITALS: BP 104/66; PULSE 72; RESP 16; TEMP 36.6; O2SAT 96
--- NOTE | 2024-06-19 14:14 | P.NPUPN_ITS ---
Subjective NPU 2 Subjective: 43-year-old female with a history of bip olar disorder and alcohol dependence admitted with worsening depression and suicidal ideation. She had continued to require as needed Ativan for alcohol-related withdrawal symptoms. She had stated that she was not feeling sick. She reported some improved sleep. She had continued to endorse depression. She endorsed wanting outpatient treatment for alcohol abuse. She had reported having good support from her father who she resided with at this time. She had reported having frequent episodes of cycling including a history of hypomanic symptoms. She had continued to report low energy and low motivation. She had isolated herself on the milieu spending much of the day in her room. Mental Status Exam 2 MSE Comments: This is a 43-year-old female who appears her stated age who was lying in bed in mild to moderate distress. There was no evidence of any abnormal involuntary motor movements or tics. Her gait was within normal limits. Her hygiene was limited. There was evidence of mild tremors. Her speech was normal in regards to rate rhythm and prosody. Her mood was described as depressed. Her affect is flat and mood congruent. Her thought process was linear logical and goal-directed. Her thought content showed no evidence of active homicidal ideation. She had denied suicidal ideation with no active plan. There was no clear evidence of delusional thinking. She did not appear to be responding to internal stimuli. Her recent , remote memory appeared intact. Her attention span was fair. Her insight is limited. Her judgment was poor. Her impulse control appeared poor as well. Vitals/I&O/Wt Last Vital Signs Temp 97.9 F 06/19/24 12:00 Pulse 72 06/19/24 12:00 Resp 16 06/19/24 12:00 BP 104/66 06/19/24 12:00 Pulse Ox 96 06/19/24 12:00 O2 Del Method Room Air 06/19/24 12:00 Data NPU 06/16/24 10:22 06/16/24 10:22 A&P Assessment and plan (1) Bipolar 2 disorder, major depressive episode: (2) Anxiety disorder: Qualifiers: Anxiety disorder type: generalized anxiety disorder Qualified Code(s): F41.1 - Generalized anxiety disorder Plan 43-year-old female who presents with symptoms suggestive of bipolar depression currently reporting worsening depression and continued use of alcohol on a daily basis despite adverse consequences. 1.? Engage patient in individual milieu and group therapy. #2?? Recommend sober living treatment at the highest level of care to which the patient is willing to commit. #3??? CIWA for alcohol withdrawal #4?? TO-15 minute checks #5?? Will attempt to gather collateral information #6 Restart outpatient medications. Increase Seroquel [id number] xr at 6pm to target bipolar depression tonight. Referral for psychotherapy and substance abuse treatment outpatient basis. Involuntary Hold Information 2 96 Hour Hold: 96 Hour Involuntary Admission: No Attestations NPU 2 Medical Necessity Statement*: Inpatient hospitalization is medically necessary and deemed to ?be ?the clinically appropriate intervention ?at this time.? We will monitor/initiate medications and make changes as indicated.? The patient?s likely length of stay 2-3days. Coding Level of Care Code Acute Code for Chg Fwd Diagnoses Bipolar 2 disorder, major depressive episode F31.81 Generalized anxiety disorder F41.1 Anxiety disorder type: generalized anxiety disorder
[2024-06-19 16:00] VITALS: BP 104/78; PULSE 78; RESP 16; TEMP 36.8; O2SAT 98
[2024-06-19] MEDS: nicotine 2 mg Gum BUCCAL (17:27)
[2024-06-19] MEDS: quetiapine XR (24HR) 50 mg Tablet 100 MG PO (19:57)
[2024-06-19 20:00] VITALS: BP 110/78; PULSE 90; RESP 18; TEMP 36.8; O2SAT 97
[2024-06-20] VITALS: BP 93/60; PULSE 70; RESP 16; TEMP 36.8; O2SAT 98
[2024-06-20 04:00] VITALS: BP 106/71; PULSE 72; RESP 18; TEMP 36.8; O2SAT 96
[2024-06-20 08:00] VITALS: BP 101/61; PULSE 77; RESP 16; TEMP 36.6; O2SAT 97
[2024-06-20] MEDS: thiamine 100 mg Tablet PO (08:26)
[2024-06-20] MEDS: nicotine 21 mg Patch 1 PATCH TRANSDERMA (08:26)
[2024-06-20] MEDS: folic acid 1 mg Tablet PO (08:27)
[2024-06-20] MEDS: multivitamin therapeutic Tablet 1 TAB PO (08:27)
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
[2024-06-20 09:22] VITALS: BP 101/61; PULSE 77; RESP 16; TEMP 36.6; O2SAT 97
== END 2024-06-20 10:09 | disposition home or self-care (01) | DRG 885 ==
LOC: ER 10:29 → NP 10:59
PROVIDERS: Admitting Provider Psychiatry & Neurology Psychiatry; Emergency Provider Physician Assistant; PCP Family Medicine Adult Medicine; Visit Provider Psychiatry & Neurology Psychiatry
DX: F31.81 Bipolar II disorder (principal); R45.851 Suicidal ideations; F41.1 Generalized anxiety disorder; F10.20 Alcohol dependence, uncomplicated; Z91.51 Personal history of suicidal behavior; F17.210 Nicotine dependence, cigarettes, uncomplicated; J44.9 Chronic obstructive pulmonary disease, unspecified; K21.9 Gastro-esophageal reflux disease without esophagitis
CPT/HCPCS: 36415; 80053; 80306; 80307; 84703; 85025; 97150; 97165; 99285

== ENCOUNTER 2024-06-30 11:05 | Emergency (ER) | payer MEDICAID, SELFPAY ==
[2024-06-30 11:12] VITALS: BP 113/74; PULSE 79; RESP 17; TEMP 36.8; O2SAT 98; BMI 27.4
[2024-06-30 11:38] VITALS: BP 121/96; PULSE 78; RESP 16; O2SAT 98
--- NOTE | 2024-06-30 11:39 | W.ED.EAR ---
HPI - Ear Problem General: Chief complaint: Ear Stated complaint: Left ear/neck pain Time Seen by Provider: 06/30/24 11:34 Source: patient Mode of arrival: ambulatory Limitations: no limitations History of Present Illness: Patient is a 43-year-old female presents to ED today with complaint of left-sided neck and left ear pain. Symptoms are present over the past 4 days. No known injury or trauma. She initially thought symptoms could be secondary to swimmer's ear [place] She has not had any drainage from the ear. She does not feel like the canal is swollen. She is not having a sore throat, difficulty breathing, or trouble swallowing. She has not noticed any swelling to the neck. Movement of her neck seems to make symptoms worse. MD Complaint: ear pain and other (neck pain) Location: left ear Duration: constant Severity: moderate Relieving factors: nothing Exacerbating factors: nothing Discharge from ear: no Associated symptoms: Reports ear or mastoid pain and neck pain; Denies fever(s), headache(s) or tinnitus Related Data Home Medications Medication Instructions Recorded Confirmed acetaminophen 325 mg tablet 325 mg PO QID PRN Pain 09/27/21 06/16/24 (Tylenol) Previous Rx's Medication Instructions Recorded fluticasone propionate 50 1 spray intranasal BID #16 grams 11/28/23 mcg/actuation nasal spray,suspension (Flonase Allergy Relief) loratadine 10 mg tablet 10 mg PO DAILY PRN allergy 03/05/24 symptoms #90 tabs omeprazole 20 mg capsule,delayed 20 mg PO DAILY PRN acid reflux #90 04/28/24 release caps folic acid 1 mg tablet 1 mg PO DAILY 30 days #30 tabs 06/20/24 quetiapine 150 mg tablet,extended 150 mg PO 1900 30 days #30 tabs 06/20/24 release 24 hr thiamine mononitrate (vit B1) 100 100 mg PO DAILY 30 days #30 tabs 06/20/24 mg tablet (Vitamin B-1 (mononitrate)) ibuprofen 800 mg tablet 800 mg PO Q8H PRN pain #20 tabs 06/30/24 methylprednisolone 4 mg tablets in See Rx Instructions PO .COMPLEX 06/30/24 a dose pack (Medrol (Sebastian)) #21 ea Allergies Allergy/AdvReac Type Severity Reaction Status Date / Time No Known Allergies Allergy Verified 06/08/24 15:38 Review of Systems Const: Denies: fever(s), chills, body aches, fatigue or malaise Eyes: Denies: change in vision, blurry vision, photophobia, floaters or seeing flashes ENMT: Reports: ear or mastoid pain; Denies: throat pain, odynophagia, hoarseness, ear discharge, change in hearing, tinnitus, nasal discharge, nasal congestion, epistaxis or sinus pain Card: Denies: chest pain Resp: Denies: dyspnea GI: Denies: nausea or vomiting Musc: Reports: neck pain Skin/Breast: Denies: rash Neuro: Denies: headache(s), numbness in extremities, weakness in extremities or sensory changes PFSH ED PFSH: Medical History Psychiatric care Weight loss, unintentional Encounter for smoking cessation counseling COPD (chronic obstructive pulmonary disease) with emphysema COPD suggested by initial evaluation Alcohol dependence Seasonal affective disorder Chain smoker 1.5 to 2 ppd since age 15 Allergic rhinitis due to allergen Colon polyp Dr. Blank Sig Polyp 12/14/21 f/u History of colitis Major depressive disorder, recurrent episode Suicidal ideation Alcohol abuse The patient has been given referral to AA meeting schedule and to [facility] inpatient and outpatient recovery program upon NPU discharge. Complicated grief History of hepatitis A Surgical History History of dental surgery H/O section X2 Family History Other CAD (coronary artery disease) COPD (chronic obstructive pulmonary disease) Depression Diabetes Psychiatric illness Social History Smoking and tobacco/nicotine status: unknown if used tobacco/nicotine Quit status (tobacco/nicotine): considering quitting Second hand smoke exposure: Yes Alcohol intake: current Alcohol intake frequency: few times a week Substance/Drug Use: never Marital status: Single Number of children: 2 Current occupational status: unemployed Current gender identity: Female Female Reproductive History: Date of last menstrual period: 06/29/24 Physical Exam Const: COMMON NORMALS: no acute distress, average body habitus, patient oriented x3, no limitations, healthy appearing, alert and well nourished GENERAL APPEARANCE: cooperative ORIENTATION/CONSCIOUSNESS: Yes awake, Yes oriented to person, Yes oriented to place and Yes oriented to time HENMT: COMMON NORMALS: normocephalic, atraumatic, hearing grossly normal bilaterally, external ears normal, EAC's normal, TM's normal bilaterally and oropharynx normal HEAD & SCALP: normal to inspection, normocephalic and atraumatic FACE & SINUS: normal facial exam EXTERNAL EAR: Yes external ears normal EXTERNAL AUDITORY CANAL: EAC's normal TYMPANIC MEMBRANE: TM's normal bilaterally MOUTH: Normal oral and palatal mucosa present, lip normal and tongue normal (deviation ) THROAT: posterior oropharynx normal and tonsils normal Eye: COMMON NORMALS: Equal, round and reactive pupils present and EOMs intact bilaterally GENERAL EYE: appearance normal, both eyes and all related structures and normal light reflex PUPIL: Yes Equal, round and reactive pupils present DIRECT OPHTHALMOSCOPY: Yes normal light reflex Neck/C-Spine: COMMON NORMALS: no lymphadenopathy, supple, no meningeal signs, no JVD and No carotid bruits GENERAL: Yes normal visual inspection, No anterior neck swelling and No submandibular swelling OTHER: tender to palpation overlying L sternocleidomastoid muscle Resp: COMMON NORMALS: normal respiratory effort and clear to auscultation bilaterally AUSCULTATION: clear to auscultation bilaterally Cardio: COMMON NORMALS: no JVD, regular rate and regular rhythm RATE: regular rate RHYTHM: regular rhythm Neuro: DAVID COMA SCALE: document GCS findings [place] coma scale eye opening: Spontaneous [place] coma scale verbal response: Orientated [place] coma scale motor response: Obey commands David coma scale total score: 15 COMMON NORMALS: patient oriented x3, CN's II-XII intact bilaterally, moves all extremities, no focal motor deficits and no sensory deficits noted SENSORIUM/ORIENTATION: Yes alert, Yes oriented to person, Yes oriented to place and Yes oriented to time MENINGEAL SIGNS: Yes no meningeal signs Course Vital Signs: Vital signs: Vital Signs Temperature 98.2 F 06/30/24 11:12 Pulse Rate 78 06/30/24 11:38 Respiratory Rate 16 06/30/24 11:38 Blood Pressure 121/96 06/30/24 11:38 Pulse Oximetry 98 06/30/24 11:38 Oxygen Delivery Me thod Room Air 06/30/24 11:38 MDM - Ear Medical Decision Making I do not see any abnormal findings regarding her left ear. She does have tenderness overlying the left sternocleidomastoid muscle. She is not having any sore throat, difficulty swallowing, or any difficulty breathing. I do not have any suspicion at this time for any type of deep space infection. She is not having any cranial nerve neuropathies, headache, ischemic symptoms, Emperatriz syndrome or pulsatile tinnitus to make me concerned for dissection. At this time we will treat with anti-inflammatories and steroids. She states she has a follow-up with her primary care provider in a few days. Return to ED precautions given. Medical Records I reviewed the patient's medical records. No radiology studies performed this visit Discharge Plan Discharge Patient Disposition: Home Clinical Impression: Strain of sternocleidomastoid muscle Condition: Stable Prescriptions: New ibuprofen 800 mg tablet 800 mg PO Q8H PRN (Reason: pain) Qty: 20 0RF Medrol (Sebastian) 4 mg tablets,dose pack See Rx Instructions .ROUTE .COMPLEX Qty: 21 0RF Rx Instructions: orally per package directions No Action acetaminophen [Tylenol] 325 mg tablet 325 mg PO QID PRN (Reason: Pain) Flonase Allergy Relief 50 mcg/actuation spray,suspension 1 spray intranasal BID Qty: 16 5RF Rx Instructions: administer into each nostril loratadine 10 mg tablet 10 mg PO DAILY PRN (Reason: allergy symptoms) Qty: 90 3RF omeprazole 20 mg capsule,delayed release(DR/EC) 20 mg PO DAILY PRN (Reason: acid reflux) Qty: 90 1RF quetiapine 150 mg tablet extended release 24 hr 150 mg PO 1900 30 Days Qty: 30 1RF folic acid 1 mg Tablet 1 mg PO DAILY 30 Days Qty: 30 1RF Vitamin B-1 (mononitrate) 100 mg Tablet 100 mg PO DAILY 30 Days Qty: 30 1RF Discharge Orders: Discharge ED (Routine); Ordered 06/30/24 Ordered By: Tamie De Leon Referrals: Barrera Reynolds MD [Primary Care Provider] - Activity Restrictions/Additional Instructions: As we discussed please follow-up with primary care in a few days as scheduled. You may also try ice and heat in addition to the medications prescribed to you today. I do not visualize any abnormalities involving your ear at this time. You need to return to the emergency department for worsening neck pain, any stroke like symptoms, fevers, neck swelling, difficulty swallowing, or any other concerns you may have. Coding Level of Care Code ED Job Putter Up And Ticket Preparer for Derick Cortez
[2024-06-30] MEDS: dexamethasone 10 mg/mL INJ 8 MG IM (12:04)
[2024-06-30 12:07] VITALS: BP 131/90; PULSE 84; O2SAT 99
== END 2024-06-30 12:08 | disposition home or self-care (01) ==
PROVIDERS: Emergency Provider Physician Assistant; PCP Family Medicine Adult Medicine
DX: S16.1XXA Strain of muscle, fascia and tendon at neck level, initial encounter (principal); Z77.22 Contact with and (suspected) exposure to environmental tobacco smoke (acute) (chronic); J44.9 Chronic obstructive pulmonary disease, unspecified; X58.XXXA Exposure to other specified factors, initial encounter
CPT/HCPCS: 96372; 99284; J1100

== ENCOUNTER 2024-09-01 14:08 | Emergency (ER) | payer MEDICAID, SELFPAY ==
--- NOTE | 2024-09-01 14:15 | XRR_ITS ---
PROCEDURE INFORMATION: Exam: XR Chest Exam date and time: 09/01/2024 2:33 PM Age: 44 years old Clinical indication: Cough and dyspnea; Additional info: Dyspnea/cough TECHNIQUE: Imaging protocol: Radiologic exam of the chest. Views: 1 view. COMPARISON: CR XR chest 1V [id number] 11/25/2022 6:13 PM FINDINGS: Lungs: Unremarkable. No consolidation. Pleural spaces: Unremarkable. No pleural effusion. No pneumothorax. Heart/Mediastinum: Unremarkable. No cardiomegaly. Bones/joints: Unremarkable. XR/XR chest 1V portable [id number] IMPRESSION: No acute findings.
--- NOTE | 2024-09-01 14:16 | ECG_ITS ---
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 Measurements Intervals [place] Rate: 103 P: 57 MT: 128 QRS: 59 QRSD: 81 T: 66 QT: 336 QTc: 441 Interpretive Statements SINUS TACHYCARDIA NONSPECIFIC T-WAVE ABNORMALITY ABNORMAL RHYTHM ECG Compared to ECG 11/25/2022 14:45:24 Sinus rhythm no longer present Sinus arrhythmia no longer present T-wave abnormality still present Electronically Signed On 09-02-2024 01:13:04 CDT by Abbey Crenshaw M.D. [email or web address]
[2024-09-01 14:40] LABS: Basophils # 0.1 10^3/uL (0.0-0.1); Basophils % 0.9 %; Eosinophils % 6.7 %; Hematocrit 40.4 % (36-47); Lymphocytes # 3.7 10^3/uL (0.8-4.8); Lymphocytes % 25.5 %; Mean Corpuscular HGB Conc 30.7 g/dL (30-55); Mean Corpuscular Hemoglobin 24.3 pg (27-33); Mean Corpuscular Volume 79.2 fl (85-98); Mean Platelet Volume 9.4 fL (7.4-10.4); Monocytes % 6.9 %; Neutrophils # 8.67 10^3/uL (1.8-7.7); Neutrophils % 59.7 %; Nucleated Red Blood Cells % 0 %; Platelet Count 507 10^3/cmm (157-399); Red Cell Distribution Width 15.7 % (12.1-15.1); White Blood Count 14.56 10^3/uL (3.29-11.43)
[2024-09-01 15:03] LABS: Alanine Aminotransferase 9 U/L (0-33); Albumin Level 3.9 g/dL (3.5-5.2); Alkaline Phosphatase 134 U/L (35-105); Aspartate Amino Transferase 14 U/L (0-32); Blood Urea Nitrogen 9 mg/dL (6-20); Calcium 9.2 mg/dL (8.5-10.5); Carbon Dioxide 26 mmol/L (22-29); Chloride 101 mmol/L (98-107); Globulin 2.9 g/dL (1.3-4.6); Glomerular Filtration Rate 109.6 mL/min (90-130); Glucose 103 mg/dL (65-115); Osmolality Calculated 283 mOsm/kg (285-295); Sodium 137 mmol/L (136-145); Total Bilirubin 0.3 mg/dL (0.15-1.2); Total Protein 6.8 g/dL (6.6-8.7)
[2024-09-01 15:44] VITALS: PULSE 106; RESP 16; TEMP 37; O2SAT 98; BMI 27.4
--- NOTE | 2024-09-01 17:05 | ED_ITS ---
HPI - URI/Sore Throat 2 General: Chief Complaint: Upper Respiratory Infection Stated Complaint: SOB, Coughing Time Seen by Provider: 09/01/24 16:56 History of Present Illness: 44-year-old female who presents to the e mergency room with complaint of shortness of breath cough she has had a headache diarrhea some nausea. She has a known history of COPD she is still a smoker. She has not seen anyone recently for this. She has not used any inhaled medications. She denies any hemoptysis or chest pain Associated symptoms: Deny abdominal pain, chills, chest pain or fever(s) Related Data Home Medications Medication Instructions Recorded Confirmed acetaminophen 325 mg tablet 325 mg PO QID PRN Pain 09/27/21 08/24/24 (Tylenol) Previous Rx's Medication Instructions Recorded loratadine 10 mg tablet 10 mg PO DAILY PRN allergy 03/05/24 symptoms #90 tabs omeprazole 20 mg capsule,delayed 20 mg PO DAILY PRN acid reflux #90 04/28/24 release caps ibuprofen 800 mg tablet 800 mg PO Q8H PRN pain #20 tabs 06/30/24 fluticasone propionate 50 1 spray intranasal BID #16 grams 07/07/24 mcg/actuation nasal spray,suspension (Flonase Allergy Relief) folic acid 1 mg tablet 1 mg PO DAILY 30 days #30 tabs 08/06/24 hydroxyzine HCl 25 mg tablet 25 mg PO BID PRN anxiety #60 tabs 08/06/24 thiamine mononitrate (vit B1) 100 100 mg PO DAILY 30 days #30 tabs 08/06/24 mg tablet (Vitamin B-1 (mononitrate)) aripiprazole 10 mg tablet (Abilify) 10 mg PO DAILY #30 tabs 08/24/24 albuterol sulfate 90 mcg/actuation 2 inh inhalation Q4H PRN shortness 09/01/24 aerosol inhaler of breath or wheezing #18 grams doxycycline hyclate 100 mg capsule 100 mg PO BID 10 days #20 caps 09/01/24 prednisone 20 mg tablet 20 mg PO TID #15 tabs 09/01/24 Allergies Allergy/AdvReac Type Severity Reaction Status Date / Time bupropion [From Wellbutrin] Allergy Intermediate ADR-Nausea Verified 08/24/24 13:53 Review of Systems 2 Const: Denies: fever(s) or chills Card: Denies: chest pain Resp: Reports: dyspnea and productive cough (Baseline); Denies: change in phlegm color or hemoptysis GI: Denies: abdominal pain : Denies: dysuria, urinary frequency or urinary urgency Musc: Denies: neck pain or back pain Skin/Breast: Denies: rash PFSH ED 2 PFSH: Medical History Bipolar 2 disorder Sternomastoid muscle strain Psychiatric care Weight loss, unintentional COPD (chronic obstructive pulmonary disease) with emphysema COPD suggested by initial evaluation Alcohol dependence Seasonal affective disorder Chain smoker 1.5 to 2 ppd since age 15 Allergic rhinitis due to allergen Colon polyp Dr. Blank Sig Polyp 12/14/21 f/u History of colitis Major depressive disorder, recurrent episode Suicidal ideation Alcohol abuse The patient has been given referral to AA meeting schedule and to [facility] inpatient and outpatient recovery program upon NPU discharge. Complicated grief History of hepatitis A Surgical History History of dental surgery H/O section X2 Family History Other CAD (coronary artery disease) COPD (chronic obstructive pulmonary disease) Depression Diabetes Psychiatric illness Social History Smoking and tobacco/nicotine status: current every day tobacco/nicotine user cigarettes Packs smoked per day: 0.25 Years cigarettes smoked: 25 Quit status (tobacco/nicotine): considering quitting Second hand smoke exposure: Yes Alcohol intake: current Alcohol intake frequency: few times a week Substance/Drug Use: never Marital status: Single Number of children: 2 Current occupational status: unemployed Current gender identity: Female Physical Exam 2 Const: GENERAL APPEARANCE: cooperative ORIENTATION/CONSCIOUSNESS: Yes awake, Yes oriented to person, Yes oriented to place and Yes oriented to time HENMT: COMMON NORMALS: normocephalic, atraumatic and hearing grossly normal bilaterally HEAD & SCALP: normocephalic and atraumatic Resp: COMMON NORMALS: normal respiratory effort, No retractions, No use of accessory muscles and clear to auscultation bilaterally AUSCULTATION: clear to auscultation bilaterally Cardio: COMMON NORMALS: regular rate, regular rhythm and No murmurs present (Cardio) RATE: regular rate RHYTHM: regular rhythm GI: COMMON NORMALS: Soft to palpation and No hepatosplenomegaly present A USCULTATION: Yes normoactive bowel sounds PALPATION: Yes Soft to palpation, No Tenderness to palpation present (GI), No Guarding due to palpation present (GI) and Yes No hepatosplenomegaly present Extremity: COMMON NORMALS: normal to inspection, capillary refill normal, no clubbing, cyanosis or edema, no calf tenderness and no pedal edema Neuro: SENSORIUM/ORIENTATION: Yes oriented to person, Yes oriented to place and Yes oriented to time Skin: COMMON NORMALS: no rashes or lesions noted GENERAL SKIN EXAM: no rashes or lesions noted Course 2 Vital Signs: Vital signs: Vital Signs Temperature 98.6 F 09/01/24 15:44 Pulse Rate 113 H 09/01/24 17:55 Respiratory Rate 20 H 09/01/24 17:55 Blood Pressure 111/89 09/01/24 17:55 Pulse Oximetry 100 09/01/24 17:55 Oxygen Delivery Me thod Room Air 09/01/24 17:45 MDM - URI/Sore Throat Medical Decision Making Labs and imaging reviewed patient does have mildly elevated white count chest x- ray is unremarkable wheezing improved after nebulizers. Will discharge patient home prednisone taper doxycycline 100 p.o. twice daily also use albuterol as needed follow-up with primary care if not improving or worsens recheck. Medical Records I reviewed the patient's medical records. Lab Data I reviewed the patient's lab results. 09/01/24 14:32 09/01/24 14:32 Radiology Impressions Chest X-Ray 09/01/24 14:15 IMPRESSION: No acute findings. Laboratory Results WBC 14.56 10^3/uL (3.29-11.43) H 09/01/24 14:32 RBC 5.10 10^6/uL (3.85-5.65) 09/01/24 14:32 Hgb 12.40 g/dL (11.27-16.99) 09/01/24 14:32 Hct 40.4 % (36-47) 09/01/24 14:32 MCV 79.2 fl (85-98) L 09/01/24 14:32 MCH 24.3 pg (27-33) L 09/01/24 14:32 MCHC 30.7 g/dL (30-55) 09/01/24 14:32 RDW 15.7 % (12.1-15.1) H 09/01/24 14:32 Plt Count 507 10^3/cmm (157-399) H 09/01/24 14:32 MPV 9.4 fL (7.4-10.4) 09/01/24 14:32 Neut % (Auto) 59.7 % 09/01/24 14:32 Lymph % (Auto) 25.5 % 09/01/24 14:32 [place] % (Auto) 6.9 % 09/01/24 14:32 Eos % (Auto) 6.7 % 09/01/24 14:32 Baso % (Auto) 0.9 % 09/01/24 14:32 Neut # (Auto) 8.67 10^3/uL (1.8-7.7) H 09/01/24 14:32 Lymph # (Auto) 3.7 10^3/uL (0.8-4.8) 09/01/24 14:32 [place] # (Auto) 1.0 10^3/uL (0.2-0.9) H 09/01/24 14:32 Eos # (Auto) 1.0 10^3/uL (0.0-0.8) H 09/01/24 14:32 Baso # (Auto) 0.1 10^3/uL (0.0-0.1) 09/01/24 14:32 Nucleated RBC % (auto) 0 % 09/01/24 14:32 Nucleated RBCs # 0.0 /100WBC 09/01/24 14:32 Sodium 137 mmol/L (136-145) 09/01/24 14:32 Potassium 4.0 mmol/L (3.5-5.1) 09/01/24 14:32 Chloride 101 mmol/L (98-107) 09/01/24 14:32 Carbon Dioxide 26 mmol/L (22-29) 09/01/24 14:32 Anion Gap 14.0 (5-19) 09/01/24 14:32 BUN 9 mg/dL (6-20) 09/01/24 14:32 Creatinine 0.6 mg/dL (0.5-0.9) 09/01/24 14:32 GFR Calculation 109.6 mL/min (90-130) 09/01/24 14:32 Glucose 103 mg/dL (65-115) 09/01/24 14:32 Calculated Osmolality 283 mOsm/kg (285-295) L 09/01/24 14:32 Calcium 9.2 mg/dL (8.5-10.5) 09/01/24 14:32 Total Bilirubin 0.3 mg/dL (0.15-1.2) 09/01/24 14:32 AST 14 U/L (0-32) 09/01/24 14:32 ALT 9 U/L (0-33) 09/01/24 14:32 Alkaline Phosphatase 134 U/L (35-105) H 09/01/24 14:32 Total Protein 6.8 g/dL (6.6-8.7) 09/01/24 14:32 Albumin 3.9 g/dL (3.5-5.2) 09/01/24 14:32 Globulin 2.9 g/dL (1.3-4.6) 09/01/24 14:32 Coronavirus (PCR) Negative (Negative) 09/01/24 17:42 Influenza A (PCR) Negative (Negative) 09/01/24 17:42 Influenza Type B (PCR) Negative (Negative) 09/01/24 17:42 RSV (PCR) Negative (Negative) 09/01/24 17:42 All radiology interpretation(s) finalized by discharge Discharge Plan Discharge Patient Disposition: Home Clinical Impression: Acute exacerbation of chronic obstructive pulmonary disease Condition: Stable Prescriptions: New doxycycline hyclate 100 mg capsule 100 mg PO BID 10 Days Qty: 20 0RF prednisone 20 mg tablet 20 mg PO TID Qty: 15 0RF Rx Instructions: 1 p.o. 3 times daily x3 days, 1 p.o. twice daily x2 days, 1 p.o. daily x2 days albuterol sulfate 90 mcg/actuation HFA aerosol inhaler 2 inh INHALATION Q4H PRN (Reason: shortness of breath or wheezing) Qty: 18 0RF No Action acetaminophen [Tylenol] 325 mg tablet 325 mg PO QID PRN (Reason: Pain) aripiprazole [Abilify] 10 mg tablet 10 mg PO DAILY Qty: 30 1RF loratadine 10 mg tablet 10 mg PO DAILY PRN (Reason: allergy symptoms) Qty: 90 3RF omeprazole 20 mg capsule,delayed release(DR/EC) 20 mg PO DAILY PRN (Reason: acid reflux) Qty: 90 1RF Flonase Allergy Relief 50 mcg/actuation spray,suspension 1 spray intranasal BID Qty: 16 5RF Rx Instructions: administer into each nostril hydroxyzine HCl 25 mg tablet 25 mg PO BID PRN (Reason: anxiety) Qty: 60 1RF Vitamin B-1 (mononitrate) 100 mg tablet 100 mg PO DAILY 30 Days Qty: 30 1RF folic acid 1 mg tablet 1 mg PO DAILY 30 Days Qty: 30 1RF ibuprofen 800 mg tablet 800 mg PO Q8H PRN (Reason: pain) Qty: 20 0RF Discharge Orders: Discharge ED (Routine); Ordered 09/01/24 Ordered By: Casey Maddox Referrals: Barrera Reynolds MD [Primary Care Provider] - Discharge Diet: Usual diet Discharge Activity: Resume usual activity Patient Instructions: COPD (Chronic Obstructive Pulmonary Disease) (ED), Opioid Safety, Pain Management Activity Restrictions/Additional Instructions: Thank you for choosing [facility] for your healthcare needs today. It is very important that you follow up as instructed or that you return to the Emergency Department should you have concerns or if your condition changes or worsens in any way. You are seen in the emergency room with complaint of shortness of breath and coughing. Chest x-ray did not show any acute pneumonia. Your viral respiratory panel is still pending however all of the things on the panel are viral and are treated with supportive cares we will contact you with results when that is available will discharge home with a steroid taper albuterol and a course of doxycycline. If you are not improving follow-up with your primary care doctor Coding Level of Care Code ED Engineer Process for Derick Cortez
[2024-09-01 17:24] VITALS: BP 128/85; PULSE 109; RESP 22; O2SAT 100
[2024-09-01] MEDS: dexamethasone 10 mg/mL INJ IM (17:37)
[2024-09-01 17:45] VITALS: PULSE 107; RESP 18; O2SAT 98
[2024-09-01] MEDS: ipratropium-albuterol 3 mL Neb INHALATION (17:45)
[2024-09-01 17:51] VITALS: PULSE 118
[2024-09-01 17:55] VITALS: BP 111/89; PULSE 113; RESP 20; O2SAT 100
[2024-09-01 18:40] LABS: Covid PCR NEGATIVE (Negative); Influenza A NEGATIVE (Negative); Influenza B NEGATIVE (Negative); Respiratory Syncytial Virus Ce NEGATIVE (Negative)
== END 2024-09-01 17:59 | disposition home or self-care (01) ==
PROVIDERS: Emergency Provider Family Medicine; PCP Family Medicine Adult Medicine
DX: J44.1 Chronic obstructive pulmonary disease with (acute) exacerbation (principal); Z11.52 Encounter for screening for COVID-19; F17.210 Nicotine dependence, cigarettes, uncomplicated
CPT/HCPCS: 0241U; 36415; 71045; 80053; 85025; 93005; 94640; 96372; 99285; J1100

== ENCOUNTER → 2024-11-06 14:50 | Outpatient (BNVA) | payer OTHER, SELFPAY | PROVIDERS: PCP Family Medicine Adult Medicine; Visit Provider Nurse Practitioner | DX: Z79.899 Other long term (current) drug therapy (principal) | CPT/HCPCS: 80061; 83036 ==

== ENCOUNTER 2025-08-23 10:23 | Outpatient (CLI) | payer MEDICAID, SELFPAY ==
--- NOTE | 2025-08-23 10:29 | MM_ITS ---
WS: [id number] DIAGNOSTIC BILATERAL DIGITAL BREAST TOMOSYNTHESIS MAMMOGRAPHY WITH CAD LEFT breast ultrasound. HISTORY: Mastodynia, breast pain, diffuse. COMPARISON: None available. TECHNIQUE: Bilateral craniocaudad, mediolateral oblique, and mediolateral views are submitted with tomosynthesis and SM. Computer aided detection utilized. Breast composition: There are scattered areas of fibroglandular density. Scattered asymmetries but no mass or distortion identified. No calcifications. No skin thickening. Ultrasound will be performed in the areas of pain which does appear to be noncyclical. LEFT breast ultrasound. Ultrasound from 3-6 o'clock of the LEFT breast as directed by the patient to include the areas of pain. No mass or distortion. No shadowing or soft tissue thickening. MM/MM diag BI tomosynthesis [id number] IMPRESSION: BI-RADS: 2 - Benign. FOLLOW UP: 1 Year Follow-up No mammographic or ultrasound abnormality in the LEFT breast in the area of alfa n.
== END 2025-08-23 10:24 | disposition home or self-care (01) ==
LOC: RAD 10:25
PROVIDERS: PCP Family Medicine; Visit Provider Family Medicine
DX: N64.4 Mastodynia (principal); R92.323 Mammographic fibroglandular density, bilateral breasts
CPT/HCPCS: 76642; 77062; G0279

== ENCOUNTER 2025-10-05 10:59 | Outpatient (CLI) | payer MEDICAID, SELFPAY ==
[2025-10-05 11:19] VITALS: PULSE 90; RESP 18; O2SAT 98
== END 2025-10-05 11:00 | disposition home or self-care (01) ==
LOC: RT 11:03
PROVIDERS: PCP Family Medicine; Visit Provider Family Medicine
DX: J44.9 Chronic obstructive pulmonary disease, unspecified (principal)
CPT/HCPCS: 94060; 94726; 94729; J7613